=== PATIENT | male | born 1955 | race Caucasian/White ===

== ENCOUNTER → 2017-07-18 07:50 | Outpatient (CLI) | payer MEDICARE, MEDICAID, SELFPAY ==
[2017-07-18 08:49] LABS: Platelet Count 204 K/mm3 (150-450)
[2017-07-18 09:14] LABS: AST(SGOT) 17 U/L (15-37); Alanine Aminotransfer ALT/SGPT 19 U/L (16-61)
[2017-07-18 09:15] LABS: Valproic Acid (Depakene) Level 68 ug/mL (50-100)
== END ==
PROVIDERS: Visit Provider Psychiatry & Neurology Psychiatry
DX: Z79.899 Other long term (current) drug therapy (principal)
CPT/HCPCS: 36415; 80164; 84450; 84460; 85049

== ENCOUNTER → 2018-01-26 08:29 | Outpatient (CLI) | payer MEDICARE, MEDICAID, SELFPAY ==
[2018-01-26 09:18] LABS: Platelet Count 201 K/mm3 (150-450)
[2018-01-26 09:30] LABS: AST(SGOT) 19 U/L (15-37); Alanine Aminotransfer ALT/SGPT 29 U/L (16-61)
[2018-01-26 09:33] LABS: Valproic Acid (Depakene) Level 42 ug/mL (50-100)
== END ==
PROVIDERS: Visit Provider Psychiatry & Neurology Psychiatry
DX: Z79.899 Other long term (current) drug therapy (principal); F19.10 Other psychoactive substance abuse, uncomplicated; R53.83 Other fatigue
CPT/HCPCS: 36415; 80164; 84450; 84460; 85049

== ENCOUNTER → 2018-06-16 08:48 | Outpatient (CLI) | payer MEDICARE, SELFPAY ==
[2018-06-16 09:16] LABS: Platelet Count 196 K/mm3 (150-450)
[2018-06-16 09:43] LABS: AST(SGOT) 19 U/L (15-37); Alanine Aminotransfer ALT/SGPT 21 U/L (16-61)
[2018-06-16 10:02] LABS: Valproic Acid (Depakene) Level 61 ug/mL (50-100)
== END ==
PROVIDERS: Referring Provider Psychiatry & Neurology Psychiatry; Visit Provider Psychiatry & Neurology Psychiatry
DX: Z79.899 Other long term (current) drug therapy (principal)
CPT/HCPCS: 36415; 80164; 82140; 84450; 84460; 85049

== ENCOUNTER → 2019-01-22 09:57 | Outpatient (CLI) | payer MEDICARE, SELFPAY ==
[2019-01-22 10:11] LABS: Platelet Count 192 K/mm3 (150-450)
[2019-01-22 10:38] LABS: Ammonia < 10.0 umol/L (11-32)
[2019-01-22 10:39] LABS: AST(SGOT) 18 U/L (15-37); Alanine Aminotransfer ALT/SGPT 21 U/L (16-61)
[2019-01-22 10:42] LABS: Valproic Acid (Depakene) Level 85 ug/mL (50-100)
== END ==
PROVIDERS: Referring Provider Psychiatry & Neurology Psychiatry; Visit Provider Psychiatry & Neurology Psychiatry
DX: Z79.899 Other long term (current) drug therapy (principal)
CPT/HCPCS: 36415; 80164; 82140; 84450; 84460; 85049

== ENCOUNTER → 2019-05-31 09:02 | Outpatient (CLI) | payer MEDICARE, SELFPAY ==
[2019-05-31 09:22] LABS: Platelet Count 248 K/mm3 (150-450)
[2019-05-31 09:39] LABS: AST(SGOT) 15 U/L (15-37); Alanine Aminotransfer ALT/SGPT 21 U/L (16-61)
[2019-05-31 09:41] LABS: Ammonia < 10.0 umol/L (11-32)
[2019-05-31 10:03] LABS: Valproic Acid (Depakene) Level 55 ug/mL (50-100)
== END ==
PROVIDERS: Referring Provider Psychiatry & Neurology Psychiatry; Visit Provider Psychiatry & Neurology Psychiatry
DX: Z79.899 Other long term (current) drug therapy (principal)
CPT/HCPCS: 36415; 80164; 82140; 84450; 84460; 85049

== ENCOUNTER → 2020-02-05 09:36 | Outpatient (CLI) | payer MEDICARE, MEDICAID, SELFPAY ==
[2020-02-05 09:58] LABS: Hematocrit 51.6 % (40-54); Hemoglobin 16.6 g/dL (13.0-16.5); Mean Corp Hgb Conc 32.2 g/dL (32-36); Mean Corpuscular Hgb 30.5 pg (27.0-32.0); Mean Corpuscular Volume 94.7 fL (80-94); Mean Platelet Vol. 10.2 fl (6.2-12.0); Platelet Count 236 K/mm3 (150-450); RBC Distribution Width CV 14.6 % (11.6-14.6); RBC Distribution Width SD 50.2 fl (35.1-43.9); Red Blood Count 5.45 M/mm3 (4.6-6.2); White Blood Count 10.3 K/mm3 (4.4-11.0)
[2020-02-05 10:21] LABS: ALB/GLOB Ratio 0.6 RATIO (0.9-2.4); AST(SGOT) 17 U/L (15-37); Alanine Aminotransfer ALT/SGPT 20 U/L (16-61); Albumin, Serum 3.4 g/dL (3.2-5.0); Alkaline Phosphatase 74 U/L (45-117); Anion Gap 5 (5-15); BUN 22 mg/dL (7-18); BUN/Creat Ratio 23.5 RATIO (10-20); Calcium,Total 9.8 mg/dL (8.5-10.1); Chloride 99 mmol/L (98-107); Creatinine, Serum 0.94 mg/dL (0.70-1.30); EST Glomerular Filtration Rate 86 mL/min (>60); Est Glom Filt Rate - Afr Amer 105 mL/min (>60); Globulin 5.4 g/dL (2.2-4.2); Glucose 95 mg/dL (74-106); Potassium 4.9 mmol/L (3.5-5.1); Protein, Total 8.8 g/dL (6.4-8.2); Sodium Level 135 mmol/L (136-145); Thyroid Stim Hormone (TSH) 4.41 uIU/mL (0.358-3.74)
[2020-02-05 10:29] LABS: Valproic Acid (Depakene) Level 54 ug/mL (50-100)
== END ==
PROVIDERS: Referring Provider Psychiatry & Neurology Psychiatry; Visit Provider Psychiatry & Neurology Psychiatry
DX: R53.83 Other fatigue (principal); Z79.899 Other long term (current) drug therapy
CPT/HCPCS: 36415; 80053; 80164; 82140; 84443; 85027

== ENCOUNTER → 2020-08-19 08:54 | Outpatient (CLI) | payer MEDICARE, MEDICAID, SELFPAY ==
[2020-08-19 09:43] LABS: Platelet Count 324 K/mm3 (150-450)
[2020-08-19 09:58] LABS: AST(SGOT) 18 U/L (15-37); Alanine Aminotransfer ALT/SGPT 19 U/L (16-61); Valproic Acid (Depakene) Level 70 ug/mL (50-100)
[2020-08-19 10:04] LABS: Ammonia < 10.0 umol/L (11-32)
== END ==
PROVIDERS: Referring Provider Psychiatry & Neurology Psychiatry; Visit Provider Psychiatry & Neurology Psychiatry
DX: Z79.899 Other long term (current) drug therapy (principal)
CPT/HCPCS: 36415; 80164; 82140; 84450; 84460; 85049

== ENCOUNTER 2021-01-29 13:59 | Inpatient (IN) | payer MEDICARE, MEDICAID, SELFPAY ==
[2021-01-29] VITALS (28 sets, daily range): BP systolic 52–189; BP diastolic 32–169; PULSE 150–170; RESP 12–46; TEMP 35.1–36.1; O2SAT 85–100; BMI 26.7; BMI 30.2; BMI 27.3
--- NOTE | 2021-01-29 14:12 | CT_ITS ---
STUDY: CT BRAIN WITHOUT CONTRAST REASON FOR EXAM: Male, 65 years old. AMS RADIATION DOSAGE (If Supplied By Facility): CTDIvol = ( 44.99 ) mGy, DLP = ( 812.98 ) mGycm TECHNIQUE: Transaxial CT imaging of the brain was performed without administration of intravenous contrast material. Individualized dose optimization techniques were used for this CT. COMPARISON: No relevant priors. FINDINGS: Normal soft tissue structures. Normal calvarium. There is severe cerebral atrophy with widening of the extra-axial spaces and ventricular dilatation. There are areas of decreased attenuation within the white matter tracts of the supratentorial brain, consistent with microvascular disease changes. Normal basal ganglia and thalami. Normal brainstem. Normal cerebellum. There is no intracranial hemorrhage. There are no findings of an acute ischemic infarction. Normal visualized paranasal sinuses. CT/Brain/Head without Contrast IMPRESSION: Chronic involutional changes of the brain. Electronically Signed: Petey Jimenez MD at 15:01 EDT Tel , Service support ,
--- NOTE | 2021-01-29 14:12 | EKG12_ITS ---
Test Reason : ALTRD LOC Blood Pressure : / mmHG Vent. Rate : 157 BPM Atrial Rate : 153 BPM P-R Int : 000 ms QRS Dur : 146 ms QT Int : 296 ms P-R-T Axes : 000 047 -04 degrees QTc Int : 478 ms Atrial fibrillation /Flutter Right bundle branch block Abnormal ECG Confirmed by RANDALL JOHN, TORRIE ([id number]), fan mail editor RAKEL RAMOS ([id number]) on 01/30/2021 1:10:08 PM Referred By: SHANNAN Confirmed By:TORRIE PEREIRA MD
--- NOTE | 2021-01-29 14:15 | EX.ED.CRITCA ---
HPI History of Present Illness Chief Complaint: Alt LOC Informant: family and EMS Narrative Narrative: Patient is a 65-year-old male with history of alcohol abuse and possible liver disease presenting from home via EMS. Son spoke to the patient yesterday. Patient lives home alone in an apartment. He states he seemed confused but agreed to go to the doctor today. Son went to check on his dad today and bring him to be evaluated and found patient unresponsive. EMS was called. Son states patient not been eating or drinking lately because he could not. Patient not has Covid vaccine. No other information provided. EMS states his blood sugar was 147. He was 80% on room air when they arrived. [facility] Medical History Alcohol abuse Traumatic brain injury Home Medications Unobtainable 01/29/21 [History Last Taken Unknown] Allergy/AdvReac Type Severity Reaction Status Date / Time Unable to Assess Allergy Verified 01/29/21 14:16 Social History Smoking Status: Current every day smoker tobacco type: cigarettes ROS ROS ED Review of Systems ROS Unobtainable: due to encephalopathy EXAM Physical Exam Const Vital Signs: 01/29/21 14:01 01/29/21 14:17 01/29/21 14:30 Temperature 96.0 F L 96.4 F L Temperature Source Oral Temporal Pulse Rate 156 H 155 H Respiratory Rate 46 H 43 H Respiratory Pattern Blood Pressure 106/69 105/79 Blood Pressure Mean 81 87 Pulse Ox 96 93 Oxygen Delivery Method Nasal Cannula Nasal Cannula Venturi Mask Oxygen Flow Rate (L/min) 4 4 4 Fraction of Inspired Oxygen (FIO2) 28 01/29/21 14:50 01/29/21 15:16 01/29/21 15:29 Temperature 96.9 F L Temperature Source Core Pulse Rate 157 H 153 H Respiratory Rate 37 H 31 H Respiratory Pattern Blood Pressure 146/129 H 189/169 H Blood Pressure Mean 134 175 Pulse Ox 99 85 94 Oxygen Delivery Method Venturi Mask Venturi Mask Venturi Mask Oxygen Flow Rate (L/min) 4 50 12 Fraction of Inspired Oxygen (FIO2) 28 50 50 01/29/21 15:42 01/29/21 16:05 01/29/21 16:30 Temperature Temperature Source Pulse Rate 151 H 154 H Respiratory Rate 20 H 20 H Respiratory Pattern Irregular Blood Pressure 80/66 L Blood Pressure Mean 70 Pulse Ox 95 98 100 Oxygen Delivery Method Venturi Mask Mechanical Ventilator Oxygen Flow Rate (L/min) 8 Fraction of Inspired Oxygen (FIO2) 40 100 01/29/21 16:35 01/29/21 16:40 01/29/21 16:45 Temperature Temperature Source Pulse Rate 155 H 154 H 154 H Respiratory Rate 20 H 20 H 20 H Respiratory Pattern Blood Pressure 88/62 L 87/59 L 93/65 Blood Pressure Mean 70 68 74 Pulse Ox 100 100 100 Oxygen Delivery Method Mechanical Ventilator Mechanical Ventilator Mechanical Ventilator Oxygen Flow Rate (L/min) Fraction of Inspired Oxygen (FIO2) 01/29/21 16:52 Temperature 96.1 F L Temperature Source Core Pulse Rate 156 H Respiratory Rate 21 H Respiratory Pattern Blood Pressure 86/61 L Blood Pressure Mean 69 Pulse Ox 100 Oxygen Delivery Method Mechanical Ventilator Oxygen Flow Rate (L/min) Fraction of Inspired Oxygen (FIO2) Positive unkempt General Appearance ED: unkempt HEENT normocephalic and atraumatic Eyes Eyes Narrative: Pupils 4 mm bilaterally, sluggishly reactive Neck no lymphadenopathy, supple and no JVD Resp Resp Narrative: Tachypneic, rhonchorous breath sounds throughout. Diminished breath sounds on the right. Cardio regular rhythm Cardio Narrative: 2+ bilateral pitting edema up to the mid tibia Rate: tachycardic GI non-distended Palpation: soft and hepatomegaly Neuro Neuro Narrative: Patient obtunded. Spontaneously will reposition himself and moves all extremities but does not follow any commands. Psych Appearance: unkempt Skin Skin Narrative: Spider angiomas on the abdomen Lesions: no lesions MDM MDM MDM Narrative Medical decision making narrative: Patient evaluated for hypoxia and altered mental status. Patient is tachypneic and obtunded on exam. ABG shows a metabolic acidosis. Patient was placed on Ventimask but does not have any improvement with fluid resuscitation for his tachycardia or mentation and decision is made to intubate. See procedure note for intubation. Patient is given 30 cc/kg fluid bolus as he does have lactic acidosis and chest x-ray is concerning for right-sided pneumonia with associated pleural effusion. I did do a head CT which did not show any acute intracranial process to explain his altered mental status. I suspect is all metabolic. Patient does have a history of alcohol abuse and questionable liver failure. He is given thiamine and folic acid however he has a normal anion gap and I do not think he is an alcoholic ketoacidosis. Patient will be admitted to the ICU for further management. He is found to have LIDIA and is hyperkalemic. He is given sodium bicarb, calcium gluconate, dextrose and insulin to temporize his potassium. I did discuss potentially doing a thoracentesis under ultrasound guidance with radiology however he would like to wait till tomorrow when the patient is more stabilized and labs are back. Case is discussed with ICU on-call, Dr. Calle and admitting physician Dr. Rivera. Patient does have worsening hypotension and thoracentesis performed as concerned that he has obstruction of his venous return causing his hypotension due to the size of his pleural effusion. Dr. Hubbard performed thoracentesis in the ER and 3 L were obtained of straw-colored fluid. Studies were sent of this fluid. Central is also placed by Dr. Hubbard and Levophed is ordered for his hypotension. Patient son is at the bedside throughout his ER stay. Patient son confirms the patient is full code and would like everything done for him. Patient started on broad-spectrum antibiotics to cover for pneumonia as well as aspiration pneumonia. He is admitted to the ICU in critical condition. Lab Data Attestation: I reviewed the patient's lab results. Labs: Laboratory Results - last 24 hr 01/29/21 01/29/21 01/29/21 14:05 14:05 14:05 WBC Cancelled Corrected WBC Cancelled RBC Cancelled Hgb Cancelled Hct Cancelled MCV Cancelled MCH Cancelled MCHC Cancelled RDW Std Deviation Cancelled RDW Coeff of Tony Cancelled Plt Count Cancelled MPV Cancelled Immature Gran % (Auto) Cancelled Neut % (Auto) Cancelled Lymph % (Auto) Cancelled [place] % (Auto) Cancelled Eos % (Auto) Cancelled Baso % (Auto) Cancelled Absolute Neuts (auto) Cancelled Absolute Lymphs (auto) Cancelled Total Counted Cancelled Neutrophils % (Manual) Cancelled Band Neutrophils % Cancelled Lymphocytes % (Manual) Cancelled Monocytes % (Manual) Cancelled Eosinophils % (Manual) Cancelled Basophils % (Manual) Cancelled Metamyelocytes % Cancelled Myelocytes % Cancelled Promyelocytes % Cancelled Blast Cells % Cancelled Plasma Cell % (Manual) Cancelled Other Cells % Cancelled Nucleated RBC % Cancelled Nucleated RBCs/100 WBC Cancelled Differential Comment Cancelled Diff Path Review Cancelled Hypersegmented Neuts Cancelled Atypical Lymphocytes Cancelled Reactive Lymphocytes Cancelled Smudge Cells Cancelled Toxic Granulation Cancelled Toxic Vacuolation Cancelled Dohle Bodies Cancelled [place] Rods Cancelled Platelet Estimate Cancelled Plt Morphology Comment Cancelled RBC Morphology Cancelled Polychromasia Cancelled Hypochromasia Cancelled Poikilocytosis Cancelled Basophilic Stippling Cancelled Anisocytosis Cancelled Microcytosis Cancelled Macrocytosis Cancelled Spherocytes Cancelled Sickle Cells Cancelled Target Cells Cancelled Tear Drop Cells Cancelled Ovalocytes Cancelled Stomatocytes Cancelled [place] Bodies Cancelled [place] Cells Cancelled Bite Cells Cancelled Crenated Cell Cancelled Acanthocytes (Spur) Cancelled Rouleaux Cancelled Schistocytes Cancelled PT Cancelled INR Cancelled APTT Cancelled Sodium Potassium Chloride Carbon Dioxide Anion Gap BUN Creatinine Estim Creat Clear Calc Est GFR (MDRD) Af Amer Est GFR (MDRD) Non-Af BUN/Creatinine Ratio Glucose Lactic Acid Calcium Total Bilirubin 1.00 Direct Bilirubin 0.46 H AST 29 ALT 23 Alkaline Phosphatase 133 H Ammonia Total Creatine Kinase Troponin I High Sens 168 H* Total Protein 8.2 Albumin 1.6 L Globulin 6.6 H TSH Ethyl Alcohol Acetone Level POC Glucose 01/29/21 01/29/21 01/29/21 14:05 14:05 14:05 WBC Corrected WBC RBC Hgb Hct MCV MCH MCHC RDW Std Deviation RDW Coeff of Tony Plt Count MPV Immature Gran % (Auto) Neut % (Auto) Lymph % (Auto) [place] % (Auto) Eos % (Auto) Baso % (Auto) Absolute Neuts (auto) Absolute Lymphs (auto) Total Counted Neutrophils % (Manual) Band Neutrophils % Lymphocytes % (Manual) Monocytes % (Manual) Eosinophils % (Manual) Basophils % (Manual) Metamyelocytes % Myelocytes % Promyelocytes % Blast Cells % Plasma Cell % (Manual) Other Cells % Nucleated RBC % Nucleated RBCs/100 WBC Differential Comment Diff Path Review Hypersegmented Neuts Atypical Lymphocytes Reactive Lymphocytes Smudge Cells Toxic Granulation Toxic Vacuolation Dohle Bodies [place] Rods Platelet Estimate Plt Morphology Comment RBC Morphology Polychromasia Hypochromasia Poikilocytosis Basophilic Stippling Anisocytosis Microcytosis Macrocytosis Spherocytes Sickle Cells Target Cells Tear Drop Cells Ovalocytes Stomatocytes [place] Bodies [place] Cells Bite Cells Crenated Cell Acanthocytes (Spur) Rouleaux Schistocytes PT INR APTT Sodium 131 L Potassium 6.2 H* Chloride 100 Carbon Dioxide 17.0 L Anion Gap 14 BUN 68 H Creatinine 1.94 H Estim Creat Clear Calc 37.22 Est GFR (MDRD) Af Amer 45 L Est GFR (MDRD) Non-Af 37 L BUN/Creatinine Ratio 35.1 H Glucose 145 H Lactic Acid 7.9 H* Calcium 9.2 Total Bilirubin Direct Bilirubin AST ALT Alkaline Phosphatase Ammonia Total Creatine Kinase 45 Troponin I High Sens Total Protein Albumin Globulin TSH 6.06 H Ethyl Alcohol Acetone Level Cancelled POC Glucose 01/29/21 01/29/21 01/29/21 14:05 14:11 15:02 WBC Corrected WBC RBC Hgb Hct MCV MCH MCHC RDW Std Deviation RDW Coeff of Tony Plt Count MPV Immature Gran % (Auto) Neut % (Auto) Lymph % (Auto) [place] % (Auto) Eos % (Auto) Baso % (Auto) Absolute Neuts (auto) Absolute Lymphs (auto) Total Counted Neutrophils % (Manual) Band Neutrophils % Lymphocytes % (Manual) Monocytes % (Manual) Eosinophils % (Manual) Basophils % (Manual) Metamyelocytes % Myelocytes % Promyelocytes % Blast Cells % Plasma Cell % (Manual) Other Cells % Nucleated RBC % Nucleated RBCs/100 WBC Differential Comment Diff Path Review Hypersegmented Neuts Atypical Lymphocytes Reactive Lymphocytes Smudge Cells Toxic Granulation Toxic Vacuolation Dohle Bodies [place] Rods Platelet Estimate Plt Morphology Comment RBC Morphology Polychromasia Hypochromasia Poikilocytosis Basophilic Stippling Anisocytosis Microcytosis Macrocytosis Spherocytes Sickle Cells Target Cells Tear Drop Cells Ovalocytes Stomatocytes [place] Bodies Logan Cells Bite Cells Crenated Cell Acanthocytes (Spur) Rouleaux Schistocytes PT INR APTT Sodium Potassium Chloride Carbon Dioxide Anion Gap BUN Creatinine Estim Creat Clear Calc Est GFR (MDRD) Af Amer Est GFR (MDRD) Non-Af BUN/Creatinine Ratio Glucose Lactic Acid Calcium Total Bilirubin Direct Bilirubin AST ALT Alkaline Phosphatase Ammonia 582.0 H Total Creatine Kinase Troponin I High Sens Total Protein Albumin Globulin TSH Ethyl Alcohol Cancelled Acetone Level POC Glucose 156 H 01/29/21 01/29/2121 15:02 15:02 15:02 WBC 44.6 H* Corrected WBC RBC 4.28 L Hgb 11.9 L Hct 39.1 L MCV 91.4 MCH 27.8 MCHC 30.4 L RDW Std Deviation 71.7 H RDW Coeff of Tony 22.7 H Plt Count 123 L MPV 12.3 H Immature Gran % (Auto) 2.800 H Neut % (Auto) 89.0 H Lymph % (Auto) 2.2 L [place] % (Auto) 5.7 Eos % (Auto) 0.2 Baso % (Auto) 0.1 Absolute Neuts (auto) 39.7 H Absolute Lymphs (auto) 1.00 Total Counted Neutrophils % (Manual) Band Neutrophils % Lymphocytes % (Manual) Monocytes % (Manual) Eosinophils % (Manual) Basophils % (Manual) Metamyelocytes % Myelocytes % Promyelocytes % Blast Cells % Plasma Cell % (Manual) Other Cells % Nucleated RBC % 0.5 Nucleated RBCs/100 WBC Differential Comment SEE COMMENTS Diff Path Review May foll Hypersegmented Neuts Atypical Lymphocytes Reactive Lymphocytes Smudge Cells Toxic Granulation RARE Toxic Vacuolation Dohle Bodies Bryant Rods Platelet Estimate SLT DEC Plt Morphology Comment RBC Morphology N CHROM Polychromasia Hypochromasia Poikilocytosis Basophilic Stippling Anisocytosis RARE Microcytosis Macrocytosis RARE Spherocytes Sickle Cells Target Cells Tear Drop Cells Ovalocytes Stomatocytes [place] Bodies [place] Cells Bite Cells Crenated Cell Acanthocytes (Spur) Rouleaux Schistocytes PT 22.2 H INR 2.0 APTT 34.8 Sodium Potassium Chloride Carbon Dioxide Anion Gap BUN Creatinine Estim Creat Clear Calc Est GFR (MDRD) Af Amer Est GFR (MDRD) Non-Af BUN/Creatinine Ratio Glucose Lactic Acid Calcium Total Bilirubin Direct Bilirubin AST ALT Alkaline Phosphatase Ammonia Total Creatine Kinase Troponin I High Sens Total Protein Albumin Globulin TSH Ethyl Alcohol 7.0 Acetone Level NEGATIVE POC Glucose 01/29/21 16:04 WBC Corrected WBC RBC Hgb Hct MCV MCH MCHC RDW Std Deviation RDW Coeff of Tony Plt Count MPV Immature Gran % (Auto) Neut % (Auto) Lymph % (Auto) [place] % (Auto) Eos % (Auto) Baso % (Auto) Absolute Neuts (auto) Absolute Lymphs (auto) Total Counted Neutrophils % (Manual) Band Neutrophils % Lymphocytes % (Manual) Monocytes % (Manual) Eosinophils % (Manual) Basophils % (Manual) Metamyelocytes % Myelocytes % Promyelocytes % Blast Cells % Plasma Cell % (Manual) Other Cells % Nucleated RBC % Nucleated RBCs/100 WBC Differential Comment Diff Path Review Hypersegmented Neuts Atypical Lymphocytes Reactive Lymphocytes Smudge Cells Toxic Granulation Toxic Vacuolation Dohle Bodies Bryant Rods Platelet Estimate Plt Morphology Comment RBC Morphology Polychromasia Hypochromasia Poikilocytosis Basophilic Stippling Anisocytosis Microcytosis Macrocytosis Spherocytes Sickle Cells Target Cells Tear Drop Cells Ovalocytes Stomatocytes [place] Bodies Logan Cells Bite Cells Crenated Cell Acanthocytes (Spur) Rouleaux Schistocytes PT INR APTT Sodium Potassium Chloride Carbon Dioxide Anion Gap BUN Creatinine Estim Creat Clear Calc Est GFR (MDRD) Af Amer Est GFR (MDRD) Non-Af BUN/Creatinine Ratio Glucose Lactic Acid Calcium Total Bilirubin Direct Bilirubin AST ALT Alkaline Phosphatase Ammonia Total Creatine Kinase Troponin I High Sens Total Protein Albumin Globulin TSH Ethyl Alcohol Acetone Level POC Glucose 238 H ABG Data ABG results: ABG 01/29/21 14:17 Specimen Type ART Sample Site R Radial pH 7.19 L* Bicarbonate Actual 13.7 L Total CO2 15 Base Excess -15 L O2 Saturation 94 L ABG pCO2 35.9 ABG pO2 85 Gabriele Test Positive Liter Flow 4.0 Crit Call To/Read Back Yes Radiography Chest X-Ray - ED: 1 View, Read by ED Physician, Read by Radiologist, Right Infiltrate and Right Effusion Diagnostic Testing: Radiology Impression Brain CT 01/29/21 14:12 IMPRESSION: Chronic involutional changes of the brain. Electronically Signed: Petey Jimenez MD at 15:01 EDT Tel , Service support , Chest X-Ray 01/29/21 14:47 IMPRESSION: Complete opacification the right hemithorax worrisome for a large right pleural effusion. Correlation with CT of the chest with contrast would be useful. Electronically Signed: Petey Jimenez MD at 14:59 EDT Tel , Service support , Chest/Abdomen/Pelvis CT 01/29/21 15:24 IMPRESSION: 1. Large right pleural effusion with near total collapse of the right lung. 2. Suspect large right hilar mass with probable mediastinal invasion worrisome for bronchogenic carcinoma and correlation with CT the chest with contrast after thoracentesis is recommended. 3. Some left lung subsegmental atelectasis or pneumonitis. 4. 11 cm sebaceous cyst within the superior right flank soft tissues. Electronically Signed: Petey Jimenez MD at 16:24 EDT Tel , Service support , Chest X-Ray 01/29/21 16:25 IMPRESSION: 1. Interval placement of endotracheal tube with the tip above the simona. 2. Interval placement of nasogastric tube with tip below the diaphragm. 3. No change in a large right pleural effusion with near total collapse of the right lung. Electronically Signed: Petey Jimenez MD at 16:51 EDT Tel , Service support , Rhythm Strip Rhythm Strip: Sinus Tach Rate: 157 Ectopy: None EKG Initial EKG: Attestation: I personally reviewed and interpreted this EKG as follows: Interpretation: Sinus Tachycardia Comments: Sinus tachycardia Slight left axis Right bundle branch block Slight ST depressions likely consistent with strain pattern Procedures Intubations Intubation Method: nasotracheal (No sedation required. 4-0 Mac blade using glide scope used to visualize a grade 1 view of the cords. 7.5 ET tube passed on first attempt easily. No immediate complications.) Intubation Verification: Positive color change and Bilateral breath sounds confirmed Intubation Complications: no complications Critical Care Time Critical Care Time: Yes Critical care time (excluding procedures): 30-74 minutes (65), Discussing w/Patient &/or Family/Income Tax Consultant, Discussing w/Consultants, Arranging Admission or Transfer and Performing Direct Patient Care at Bedside Discharge Plan Dx/Rx/DC Orders Clinical Impression: Severe sepsis with septic shock, Acute encephalopathy, Acute respiratory failure, Metabolic acidosis, Acute kidney injury, Hyperkalemia, Pleural effusion on right, Alcohol abuse, Decompensated hepatic cirrhosis Disposition Disposition: Acute Care [facility] Discharge Date/Time: 01/29/21 18:21
[2021-01-29 14:20] LABS: Bedside Glucose 156 mg/dL (70-110)
[2021-01-29 14:20] LABS: Allen Test Positive; Base Excess -15 mmol/L (-2 to +2); Bicarbonate 13.7 mmol/L (22-26); Blood Gas Specimen Type ART; PO2 85 mmHG (75-100); SITE R Radial; SO2 94 % (95-99); Total Carbon Dioxide 15 mmol/L; pCO2 35.9 mmHg (35-45); pH 7.19 (7.35-7.45)
--- NOTE | 2021-01-29 14:47 | RAD_ITS ---
STUDY: X-RAY CHEST REASON FOR EXAM: Male, 65 years old. hypoxia TECHNIQUE: Single AP portable view of the chest. COMPARISON: None. FINDINGS: Complete opacification of the right hemithorax consistent with a large right-sided pleural effusion or right lung collapse. Lack of mediastinal shift suggests pleural effusion. Correlation with CT would be useful. Normal size heart. Normal mediastinum and bridgette. Normal visualized pulmonary arteries. Normal visualized aortic arch and descending thoracic aorta. Normal visualized thoracic spine. Normal visualized ribs, clavicles, and shoulders. There is no demonstrated abnormality of the visualized soft tissue structures of the upper abdomen. RAD/Chest 1 View (Portable) IMPRESSION: Complete opacification the right hemithorax worrisome for a large right pleural effusion. Correlation with CT of the chest with contrast would be useful. Electronically Signed: Petey Jimenez MD at 14:59 EDT Tel , Service support ,
[2021-01-29 14:49] LABS: AST(SGOT) 29 U/L (15-37); Alanine Aminotransfer ALT/SGPT 23 U/L (16-61); Albumin, Serum 1.6 g/dL (3.2-5.0); Alkaline Phosphatase 133 U/L (45-117); Bilirubin, Direct 0.46 mg/dL (0.00-0.30); Globulin 6.6 g/dL (2.2-4.2); Protein, Total 8.2 g/dL (6.4-8.2); Troponin-I HS 168 pg/mL (3.0-78.0)
[2021-01-29 14:54] LABS: Anion Gap 14 (5-15); BUN 68 mg/dL (7-18); BUN/Creat Ratio 35.1 RATIO (10-20); CPK Total, Creatine Kinase 45 U/L (39-308); Calcium,Total 9.2 mg/dL (8.5-10.1); Chloride 100 mmol/L (98-107); Creatinine, Serum 1.94 mg/dL (0.70-1.30); EST Glomerular Filtration Rate 37 mL/min (>60); Est Glom Filt Rate - Afr Amer 45 mL/min (>60); Estimated Creatinine Clearance 37.22 ml/min; Glucose 145 mg/dL (74-106); Potassium 6.2 mmol/L (3.5-5.1); Sodium Level 131 mmol/L (136-145); Thyroid Stim Hormone (TSH) 6.06 uIU/mL (0.358-3.74)
[2021-01-29 14:55] LABS: Lactic Acid 7.9 mmol/L (0.4-1.9)
[2021-01-29] MEDS: 0.9% Normal Saline 1,000 ML 999 ML IV ×4 (14:59→19:07)
[2021-01-29 15:24] LABS: Absolute Neutrophil Count 39.7 X10^3/uL (2.0-7.7); Basophil# 0.03 X10^3/uL; Basophil% 0.1 % (0-1); Eosinophils% 0.2 % (0-5); Hematocrit 39.1 % (40-54); Hemoglobin 11.9 g/dL (13.0-16.5); Lymphocyte % 2.2 % (19-41); Mean Corp Hgb Conc 30.4 g/dL (32-36); Mean Corpuscular Hgb 27.8 pg (27.0-32.0); Mean Corpuscular Volume 91.4 fL (80-94); Mean Platelet Vol. 12.3 fl (6.2-12.0); Monocyte# 2.55 X10^3/uL; Monocyte% 5.7 % (0-10); NRBC Flagged by Analyzer 0.5 % (0-5); Neutrophil # 39.72 X10^3/uL (2.7-7.7); POSITIVE COUNT YES; POSITIVE DIFFERENTIAL YES; POSITIVE MORPHOLOGY YES; Platelet Count 123 K/mm3 (150-450); RBC Distribution Width CV 22.7 % (11.6-14.6); RBC Distribution Width SD 71.7 fl (35.1-43.9); Red Blood Count 4.28 M/mm3 (4.6-6.2)
--- NOTE | 2021-01-29 15:24 | CT_ITS ---
STUDY: CT CHEST, ABDOMEN T PELVIS WITHOUT CONTRAST REASON FOR EXAM: Male, 65 years old. septic shock RADIATION DOSAGE (If Supplied By Facility): CTDIvol = ( 19.08 ) mGy, DLP = ( 1773.12 ) mGycm TECHNIQUE: Transaxial imaging was performed without the administration of intravenous contrast material. Individualized dose optimization techniques were used for this CT. COMPARISON: No relevant priors. FINDINGS: CHEST Mild emphysematous changes. Peripheral groundglass densities in the left lung consistent with subsegmental atelectasis or pneumonitis. Large right pleural effusion extending over the apex of the right lung with near total collapse of the right lung. Normal heart and pericardium. Normal mediastinum. Suspect large right hilar mass with mediastinal invasion difficult to visualize due to the large pleural effusion and lack of intravenous contrast. A repeat CT with contrast after thoracentesis would be useful. Normal unenhanced pulmonary arteries. Normal aorta arch and descending thoracic aorta. Normal osseous structures. 2 cm round mass of fluid attenuation immediately subjacent to the skin in the anterior chest wall consistent with a sebaceous cyst. 9 cm mass of fluid attenuation immediately subjacent to the skin in the superior aspect of the right flank worrisome for sebaceous cyst. ABDOMEN Large right pleural effusion. The visualized portions of the heart are within normal limits. Normal liver. Normal gallbladder and extrahepatic biliary system. Normal spleen. Normal pancreas. Normal bilateral adrenal glands. Normal right kidney. Normal left kidney. Normal visualized stomach. Normal small intestine. Normal colon. The appendix is visualized and appears normal. Normal abdominal aorta. Normal inferior vena cava. Normal retroperitoneum. 11 cm oval mass of water attenuation within the superficial subcutaneous fat just subjacent to the skin of the right flank consistent with a large sebaceous cyst. Normal osseous structures. PELVIS Negro catheter within the collapsed bladder. Normal visualized small intestine. Normal visualized colon. There is no pelvic fluid. There is no pelvic lymphadenopathy or mass lesion. Normal visualized pelvic arteries. There is a left inguinal hernia containing fat. Normal osseous structures. CT/CT Chest, Abd, Pelvis WO Cont IMPRESSION: 1. Large right pleural effusion with near total collapse of the right lung. 2. Suspect large right hilar mass with probable mediastinal invasion worrisome for bronchogenic carcinoma and correlation with CT the chest with contrast after thoracentesis is recommended. 3. Some left lung subsegmental atelectasis or pneumonitis. 4. 11 cm sebaceous cyst within the superior right flank soft tissues. Electronically Signed: Petey Jimenez MD at 16:24 EDT Tel , Service support ,
[2021-01-29 15:26] LABS: Differential Indicated SCAN CRITERIA MET; White Blood Count 44.6 K/mm3 (4.4-11.0)
[2021-01-29 15:33] LABS: Prothrombin Time (Protime)PT. 22.2 SECONDS (11.7-14.9)
[2021-01-29 15:34] LABS: Partial Thromboplast Time 34.8 Seconds (24.1-36.2)
[2021-01-29] MEDS: LORazepam 2 MG/ML Syringe IV (15:49)
[2021-01-29 15:53] LABS: Anisocytosis RARE; Differential Comment SEE COMMENTS; Macrocytosis RARE; Platelet Estimate SLT DEC (ADEQ); Red Cell Morphology N CHROM NORMAL (NORM C&C); Toxic Granulation RARE
[2021-01-29] MEDS: Insulin Lispro 10 UNIT in Syringe 0 ML 6 UNIT IV (15:53)
[2021-01-29] MEDS: Dextrose 50%-Water 25 GM/50 ML DISP.SYRIN IV (15:59)
[2021-01-29 16:11] LABS: Bedside Glucose 238 mg/dL (70-110)
[2021-01-29] MEDS: Propofol 10MG/Ml 1,000 MG/100 ML Bottle 5.4 MG CONT INF (16:22)
--- NOTE | 2021-01-29 16:25 | RAD_ITS ---
STUDY: X-RAY CHEST REASON FOR EXAM: Male, 65 years old. Intubation TECHNIQUE: Single AP portable view of the chest. COMPARISON: 01/29/2021 at 1456 FINDINGS: Interval placement of endotracheal tube with the tip approximately 6 cm above the simona. Interval placement of nasogastric tube with tip below the diaphragm. No change in the near total opacification right hemithorax consistent with a large right pleural effusion and right lung collapse. There is no demonstrated pleural abnormality. Normal size heart. Normal mediastinum and bridgette. Normal visualized pulmonary arteries. Normal visualized aortic arch and descending thoracic aorta. Normal visualized thoracic spine. Normal visualized ribs, clavicles, and shoulders. There is no demonstrated abnormality of the visualized soft tissue structures of the upper abdomen. RAD/Chest 1 View (Portable) IMPRESSION: 1. Interval placement of endotracheal tube with the tip above the simona. 2. Interval placement of nasogastric tube with tip below the diaphragm. 3. No change in a large right pleural effusion with near total collapse of the right lung. Electronically Signed: Petey Jimenez MD at 16:51 EDT Tel , Service support ,
--- NOTE | 2021-01-29 18:10 | RAD_ITS ---
STUDY: X-RAY CHEST REASON FOR EXAM: Male, 65 years old. Central line placement. Thoracentesis. TECHNIQUE: Single AP portable view of the chest. COMPARISON: 01/29/2021 (1624) FINDINGS: There is now a right jugular central venous catheter. Tip lies in the superior vena cava. Interval endotracheal tube and nasal gastric tube. There is a small bore straight catheter overlying the right mid chest. There is a decrease in the pleural effusion when compared to prior study. There is a pneumothorax of approximately 10% of the visualized lung volume. There is increased density within the visualized right lung apex. There is marked decrease in the pleural effusion when compared to prior study. The left lung is clear. There is decreased mediastinal shift when compared to the previous study. Normal mediastinum and left hilum. Normal left pulmonary arteries. Normal visualized aortic arch and descending thoracic aorta. No osseous changes. There is no demonstrated abnormality of the visualized soft tissue structures of the upper abdomen. RAD/CXR for Line Placement IMPRESSION: 1. Right jugular central venous catheter not previously seen. 2. The catheter within the right hemithorax. There is a decrease in the right pleural effusion. There is collapse of the visualized right lung apex with approximate 10% pneumothorax. 3. Resolution of the left mediastinal shift seen on the prior study. Electronically Signed: Jhonathan Diaz DO at 18:55 EDT Tel [phone], Service support ,
--- NOTE | 2021-01-29 18:15 | EX.ED.PROC ---
Procedure Report Date of Procedure: 01/29/21 Due to busy department I asked performed procedures below emergently due to patient's critical condition. Patient noted total pleural effusion on the right side currently on a ventilator tachycardic and getting hypotensive. Son was bedside discussed procedures to be performed emergently. He understands. Thoracentesis: Emergent condition. Normal sterile fashion. Betadine prep right chest wall. 11 blade used for skin incision, thoracentesis blunt needle advanced over the rib into the chest wall, there was air bubbles return, thoracentesis tube was advanced. This was secured, cloudy yellow fluid continued to drain from Pleur-evac, 3 L does so far. Fluids were collected in 3 tubes for analysis in the lab as needed. Tube was secured with 2-0 suture, Xeroform dressing and tube dressing was placed to secure. Central line placement: Emergent due to hypotension. Ultrasound evaluation noted dilated right IJ. Betadine prep, skin was anesthetized, ultrasound guided Seldinger straight needle with dark blood on first stick. Guidewire advanced, skin incision, dilation, triple-lumen catheter placed and secured. All 3 lines flushed. Biopatch and dressing was placed. Post ultrasound pleural noted no pneumothorax. Post chest x-ray films reviewed by myself noted good placement of central line, one third of lung upper was now visualized, thoracentesis tube was noted in the chest wall.
[2021-01-29 18:23] LABS: Reflex Lactate? Y
--- NOTE | 2021-01-29 18:37 | HP.PCM_ITS ---
HPI - General General Date of Admission: 01/29/21 HPI Narrative LUCINA AGUIRRE, is a 65 M with a history of alcohol abuse. Found unresponsive by his son. EMS called and patient brought to the hospital. No history of alcohol abuse. Patient unable to provide any history as he is encephalopathic and obtunded. Found to have marked leukocytosis and whiteout on the right lung noted on chest x-ray and CT. Due to respiratory failure and impairment in mentation and inability to protect airway patient was intubated. [facility] Medical History Alcohol abuse Traumatic brain injury Home Medications Unobtainable 01/29/21 [History Last Taken Unknown] Allergy/AdvReac Type Severity Reaction Status Date / Time Unable to Assess Allergy Verified 01/29/21 14:16 Social History Smoking Status: Current every day smoker tobacco type: cigarettes ROS ROS Narrative Unable to obtain from patient due to impaired mental status. Vital Signs Vital Signs Vital Signs: 01/29/21 14:01 01/29/21 14:17 01/29/21 14:30 Temperature 35.6 C L 35.8 C L Temperature Source Oral Temporal Pulse Rate 156 H 155 H Respiratory Rate 46 H 43 H Respiratory Pattern Blood Pressure 106/69 105/79 Blood Pressure Mean 81 87 Pulse Ox 96 93 Oxygen Delivery Method Nasal Cannula Nasal Cannula Venturi Mask Oxygen Flow Rate (L/min) 4 4 4 Fraction of Inspired Oxygen (FIO2) 28 01/29/21 14:50 01/29/21 15:16 01/29/21 15:29 Temperature 36.1 C L Temperature Source Core Pulse Rate 157 H 153 H Respiratory Rate 37 H 31 H Respiratory Pattern Blood Pressure 146/129 H 189/169 H Blood Pressure Mean 134 175 Pulse Ox 99 85 94 Oxygen Delivery Method Venturi Mask Venturi Mask Venturi Mask Oxygen Flow Rate (L/min) 4 50 12 Fraction of Inspired Oxygen (FIO2) 28 50 50 01/29/21 15:42 01/29/21 16:05 01/29/21 16:30 Temperature Temperature Source Pulse Rate 151 H 154 H Respiratory Rate 20 H 20 H Respiratory Pattern Irregular Blood Pressure 80/66 L Blood Pressure Mean 70 Pulse Ox 95 98 100 Oxygen Delivery Method Venturi Mask Mechanical Ventilator Oxygen Flow Rate (L/min) 8 Fraction of Inspired Oxygen (FIO2) 40 100 01/29/21 16:35 01/29/21 16:40 01/29/21 16:45 Temperature Temperature Source Pulse Rate 155 H 154 H 154 H Respiratory Rate 20 H 20 H 20 H Respiratory Pattern Blood Pressure 88/62 L 87/59 L 93/65 Blood Pressure Mean 70 68 74 Pulse Ox 100 100 100 Oxygen Delivery Method Mechanical Ventilator Mechanical Ventilator Mechanical Ventilator Oxygen Flow Rate (L/min) Fraction of Inspired Oxygen (FIO2) 01/29/21 16:52 01/29/21 17:47 Temperature 35.6 C L 35.3 C L Temperature Source Core Core Pulse Rate 156 H 155 H Respiratory Rate 21 H 26 H Respiratory Pattern Blood Pressure 86/61 L 80/64 L Blood Pressure Mean 69 69 Pulse Ox 100 Oxygen Delivery Method Mechanical Ventilator Mechanical Ventilator Oxygen Flow Rate (L/min) Fraction of Inspired Oxygen (FIO2) Weight Weight: 90 kg Body Mass Index (BMI) 30.2 Physical Exam Narrative General exam. Acutely ill looking, chronically ill looking, poorly kempt HEENT. Oral mucosa dry Neck. Neck is supple Heart. First and second heart sounds heard no murmurs. Patient is very tachycardic with heart rate in the 140s. Lungs. Markedly diminished breath sounds in the right hemithorax. Abdomen. Liver is markedly enlarged to 10 to 12 cm below the costal margin, firm to hard. Extremities. Bilateral pitting pedal edema 2+. Skin. There is mottling of the skin. Skin of the extremities is cool. [employer]. Patient is stuporous and obtunded. Results Lab / Micro Data Result Diagrams: 01/29/21 15:02 01/29/21 14:05 Labs: Laboratory Results - last 24 hr 01/29/21 14:05: Total Bilirubin 1.00, Direct Bilirubin 0.46 H, AST 29, ALT 23, Alkaline Phosphatase 133 H, Troponin I High Sens 168 H*, Total Protein 8.2, Albumin 1.6 L, Globulin 6.6 H 01/29/21 14:05: WBC Cancelled, Corrected WBC Cancelled, RBC Cancelled, Hgb Cancelled, Hct Cancelled, MCV Cancelled, MCH Cancelled, MCHC Cancelled, RDW Std Deviation Cancelled, RDW Coeff of Tony Cancelled, Plt Count Cancelled, MPV Cancelled, Immature Gran % (Auto) Cancelled, Neut % (Auto) Cancelled, Lymph % (Auto) Cancelled, [place] % (Auto) Cancelled, Eos % (Auto) Cancelled, Baso % (Auto) Cancelled, Absolute Neuts (auto) Cancelled, Absolute Lymphs (auto) Cancelled, Total Counted Cancelled, Neutrophils % (Manual) Cancelled, Band Neutrophils % Cancelled, Lymphocytes % (Manual) Cancelled, Monocytes % (Manual) Cancelled, Eosinophils % (Manual) Cancelled, Basophils % (Manual) Cancelled, Metamyelocytes % Cancelled, Myelocytes % Cancelled, Promyelocytes % Cancelled, Blast Cells % Cancelled, Plasma Cell % (Manual) Cancelled, Other Cells % Cancelled, Nucleated RBC % Cancelled, Nucleated RBCs/100 WBC Cancelled, Differential Comment Cancelled, Diff Path Review Cancelled, Hypersegmented Neuts Cancelled, Atypical Lymphocytes Cancelled, Reactive Lymphocytes Cancelled, Smudge Cells Cancelled, Toxic Granulation Cancelled, Toxic Vacuolation Cancelled, Dohle Bodies Cancelled, Bryant Rods Cancelled, Platelet Estimate Cancelled, Plt Morphology Comment Cancelled, RBC Morphology Cancelled, Polychromasia Cancelled, Hypochromasia Cancelled, Poikilocytosis Cancelled, Basophilic Stippling Cance lled, Anisocytosis Cancelled, Microcytosis Cancelled, Macrocytosis Cancelled, Spherocytes Cancelled, Sickle Cells Cancelled, Target Cells Cancelled, Tear Drop Cells Cancelled, Ovalocytes Cancelled, Stomatocytes Cancelled, [place] Bodies Cancelled, Logan Cells Cancelled, Bite Cells Cancelled, Crenated Cell Cancelled, Acanthocytes (Spur) Cancelled, Rouleaux Cancelled, Schistocytes Cancelled 01/29/21 14:05: PT Cancelled, INR Cancelled, APTT Cancelled 01/29/21 14:05: Sodium 131 L, Potassium 6.2 H*, Chloride 100, Carbon Dioxide 17.0 L, Anion Gap 14, BUN 68 H, Creatinine 1.94 H, Estim Creat Clear Calc 37.22, Est GFR (MDRD) Af Amer 45 L, Est GFR (MDRD) Non-Af 37 L, BUN/Creatinine Ratio 35.1 H, Glucose 145 H, Calcium 9.2, Total Creatine Kinase 45, TSH 6.06 H 01/29/21 14:05: Acetone Level Cancelled 01/29/21 14:05: Lactic Acid 7.9 H* 01/29/21 14:05: Ethyl Alcohol Cancelled 01/29/21 14:11: POC Glucose 156 H 01/29/21 15:02: Ammonia 582.0 H 01/29/21 15:02: PT 22.2 H, INR 2.0, APTT 34.8 01/29/21 15:02: WBC 44.6 H*, RBC 4.28 L, Hgb 11.9 L, Hct 39.1 L, MCV 91.4, MCH 27.8, MCHC 30.4 L, RDW Std Deviation 71.7 H, RDW Coeff of Tony 22.7 H, Plt Count 123 L, MPV 12.3 H, Immature Gran % (Auto) 2.800 H, Neut % (Auto) 89.0 H, Lymph % (Auto) 2.2 L, [place] % (Auto) 5.7, Eos % (Auto) 0.2, Baso % (Auto) 0.1, Absolute Neuts (auto) 39.7 H, Absolute Lymphs (auto) 1.00, Nucleated RBC % 0.5, Differential Comment SEE COMMENTS, Diff Path Review May foll, Toxic Granulation RARE, Platelet Estimate SLT DEC, RBC Morphology N CHROM, Anisocytosis RARE, Macrocytosis RARE 01/29/21 15:02: Ethyl Alcohol 7.0, Acetone Level NEGATIVE 01/29/21 16:04: POC Glucose 238 H Micro: Microbiology 01/29/21 14:10 Interface Orders SARS-CoV-2 Antigen (Rapid) - Final ABG Data ABG results: ABG 01/29/21 14:17 Specimen Type ART Sample Site R Radial pH 7.19 L* Bicarbonate Actual 13.7 L Total CO2 15 Base Excess -15 L O2 Saturation 94 L ABG pCO2 35.9 ABG pO2 85 Gabriele Test Positive Liter Flow 4.0 Crit Call To/Read Back Yes Radiology Impression Brain CT 01/29/21 14:12 IMPRESSION: Chronic involutional changes of the brain. Electronically Signed: Petey Jimenez MD at 15:01 EDT Tel , Service support , Chest X-Ray 01/29/21 14:47 IMPRESSION: Complete opacification the right hemithorax worrisome for a large right pleural effusion. Correlation with CT of the chest with contrast would be useful. Electronically Signed: Petey Jimenez MD at 14:59 EDT Tel , Service support , Chest/Abdomen/Pelvis CT 01/29/21 15:24 IMPRESSION: 1. Large right pleural effusion with near total collapse of the right lung. 2. Suspect large right hilar mass with probable mediastinal invasion worrisome for bronchogenic carcinoma and correlation with CT the chest with contrast after thoracentesis is recommended. 3. Some left lung subsegmental atelectasis or pneumonitis. 4. 11 cm sebaceous cyst within the superior right flank soft tissues. Electronically Signed: Petey Jimenez MD at 16:24 EDT Tel , Service support , Chest X-Ray 01/29/21 16:25 IMPRESSION: 1. Interval placement of endotracheal tube with the tip above the simona. 2. Interval placement of nasogastric tube with tip below the diaphragm. 3. No change in a large right pleural effusion with near total collapse of the right lung. Electronically Signed: Petey Jimenez MD at 16:51 EDT Tel , Service support , Assessment & Plan Assessment/Plan (1) Severe sepsis with septic shock: PLAN: Secondary to aspiration pneumonia perhaps and possibly even SBP and decompensated alcoholic liver cirrhosis. Patient started on pressors. Admitted to the ICU. Treated with broad-spectrum antibiotics with IV Zosyn and vancomycin. Started Levophed and will continue vasopressors. (2) Acute respiratory failure: PLAN: Secondary to large right-sided pleural effusion, acute lung injury from severe sepsis and possibly aspiration. Unclear etiology of the effusion. Thoracentesis has been ordered and fluid will be sent for analysis. Patient intubated and placed on mechanical ventilation. 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 (3) Acute kidney injury: PLAN: Secondary to severe sepsis and shock most likely. Aggressively resuscitated with crystalloids. Treat underlying infection. Monitor renal function. (4) Decompensated hepatic cirrhosis: PLAN: Decompensated alcoholic liver cirrhosis with encephalopathy. Patient has a history of significant alcohol abuse. Ammonia is markedly elevated. Start treatment with lactulose via OG tube. Monitor ammonia levels. Liver ultrasound when more stable. (5) Acute encephalopathy: PLAN: Secondary to severe sepsis/shock and decompensated cirrhosis with hepatic encephalopathy. Expect improvement with treatment of underlying causes. (6) Alcohol abuse: (7) Metabolic acidosis: PLAN: Secondary to severe sepsis and shock and lactic acidemia. Expect improvement with resolution of severe sepsis and shock. (8) Hyperkalemia: PLAN: Has been treated with dextrose and insulin and sodium bicarbonate. We will repeat and continue to monitor. Expect improvement with improvement of renal function. Charges/Coding Visit Charges Inpatient E&M: 27024 Init Hosp L3
--- NOTE | 2021-01-29 18:45 | RAD_ITS ---
STUDY: X-RAY CHEST REASON FOR EXAM: Male, 65 years old. Endotracheal tube placement. TECHNIQUE: Single AP portable view of the chest. COMPARISON: 01/29/2021 (3185). FINDINGS: There is no endotracheal tube with its tip 3.3 cm above the simona. There is no enteric tube with its tip overlying the stomach. The upper port lies above the diaphragm. This should be advanced several centimeters. Stable right jugular central venous catheter. Again seen is a small straight catheter in the right hemithorax. There is marked reduction in the pleural effusion when compared prior study. The right lung remains collapsed with a pneumothorax of approximately 30% lung volume. The left lung is clear. Normal size heart. Normal mediastinum. There is soft tissue density thought to be collapsed lung in the right hilar region. Normal visualized pulmonary arteries. Normal visualized aortic arch and descending thoracic aorta. No osseous changes. Normal visualized ribs, clavicles, and shoulders. There is no demonstrated abnormality of the visualized soft tissue structures of the upper abdomen. RAD/Chest 1 View (Portable) IMPRESSION: 1. Tubes and catheters as described. 2. Progressive decrease in right pleural effusion. There is nonexpansile lungs with approximate 30% pneumothorax. Electronically Signed: Jhonathan Diaz DO at 21:06 EDT Tel [phone], Service support ,
[2021-01-29] MEDS: 0.9% Saline Lock 10 ML Syringe IV (19:00)
[2021-01-29 19:16] LABS: Allen Test Positive; Base Excess -14 mmol/L (-2 to +2); Bicarbonate 15.7 mmol/L (22-26); Blood Gas Specimen Type ART; FI02 100; Mode AC; O2 Delivery Device AeroMask; PEEP 10; PO2 42 mmHG (75-100); RR 12; SITE L Radial; SO2 59 % (95-99); Total Carbon Dioxide 17 mmol/L; Vt 450; pCO2 52.9 mmHg (35-45); pH 7.08 (7.35-7.45)
--- NOTE | 2021-01-29 19:35 | RAD_ITS ---
STUDY: X-RAY CHEST REASON FOR EXAM: Male, 65 years old. Chest tube placement. TECHNIQUE: Single AP portable view of the chest. COMPARISON: 01/29/2021 ([id number]) FINDINGS: There is no large bore right-sided chest tube. There is reduction in the right pneumothorax when compared to the previous study. There is persistent pleural effusion at the right lung base. Stable endotracheal tube, enteric tube and right jugular central venous catheter. Small right chest tube remains. The remainder of findings are essentially unchanged from exam RAD/Chest 1 View (Portable) IMPRESSION: Start numbering large-bore right chest tube with reduction in pneumothorax. The remainder of the findings is stable. Electronically Signed: Jhonathan Diaz DO at 21:37 EDT Tel [phone], Service support ,
[2021-01-29 19:41] LABS: Glucose, Body Fluid 4 mg/dL (40-70); Protein, Body Fluid 0.9 g/dL (Not Establ.)
[2021-01-29 19:58] LABS: Auto B Fluid Analyzer BKGD Ct COUNTS W/IN LIMITS (W/IN LIMITS); Color/Body Fluid YELLOW; Source- Body Fluid PLEURAL FLUID
[2021-01-29 19:59] LABS: Appearance/Body Fluid CLOUDY; Body Fluid Polynuclear WBC % 54.8 %; Body Fluid Total Cells Counted 5.601 10^3/ul; Red Cell Count/Body Fluid 0.006 10^6/ul; White Blood Count/Body Fluid 5.567 10^3/uL
[2021-01-29 20:00] LABS: Body Fluid Mononuclear WBC # 2.517 10^3/uL; Body Fluid Mononuclear WBC % 45.2 %
[2021-01-29] MEDS: Lactated Ringers 1,000 ML 999 ML IV ×2 (20:19→21:30)
--- NOTE | 2021-01-29 20:22 | PCM.OP.PRO ---
Assessment & Plan Assessment/Plan (1) Empyema of lung: PLAN: Placement of right thoracostomy tube Procedure Report Date of Procedure: 01/29/21 The patient had chest tube catheter placed in ED with >1L output and persistent pneumothorax requiring larger caliber tube. Therefore, after removing the prior chest tube dressing, the right chest was prepped with chloraprep and a 3cm transverse incision was made over the new superior intercostal space. Blunt dissection was used to spread through the subcutaneous tissue and intercostal muscle directly over the rib. Then a the tip of a marcia clamp was used to pop into the pleural space. A 28F thoracostomy tube was then inserted into this opening and placed at 10cm on the skin. The tube was connected to the Pleurvac suction device and there was immediate return of milky fluid. A small airleak was noted over the waterseal chamber. The tube was tied in with 0-silk suture and additional interrupted sutures were used to close down the skin opening around the tube. Chest Xray was performed at bedside to confirm position. Then the tube was dressed with petroleum guaze, 4X4 plain gauzes, and several strips of Elastoplast tape. Procedures Cardiovascular CF Procedures [id number]: [id number] Insertion of chest tube
--- NOTE | 2021-01-29 20:34 | PCM.OP.PRO ---
Assessment & Plan Assessment/Plan (1) Severe sepsis with septic shock: PLAN: Patient with septic shock requiring vasopressor support. Unable to obtain noninvasive BP reading and radial aa. are diminuitive under ultrasound. Therefore, I elected to place a femoral arterial line. Procedure Report Date of Procedure: 01/29/21 The left femoral artery was localized under ultrasound guidance and there was good flow with color doppler. Therefore, the left groin was prepped with Cloraprep and the vessel was accessed with a finder needle under ultrasound guidance. A guidewire was placed without difficulty using a Seldinger technique. The insertion site was enlarged with a scalpel and a 20Ga Pediatric Jugular access kit catheter was placed into the vessel over the guidewire. Once the wire was removed there was pulsatile flow through the catheter which was connected to the arterial line transducing catheter. The line was zeroed and a good waveform was present on the monitor. Given the location and the apparent propensity of the line to migrate, I elected to suture the line in place with 0 silk at three points. The site was then cleaned using a Chloraprep stick and a Chlorhexidine dressing was placed to seal the line. The patient tolerated the procedure without apparent complication. Procedures Cardiovascular CF Procedures [id number]: [id number] Insertion catheter artery
[2021-01-29 20:40] LABS: Body Fluid QC Type(s) BF2Q; Lymphocytes 1 %; Monocytes 13 %; Neutrophil (Segs) 86 %
--- NOTE | 2021-01-29 21:18 | PCM.RX.CS ---
Consult Pharmacy has been consulted to manage selected antiobiotic: Vancomycin Type of Consult: New start Suspected Infection: Sepsis Prior Doses of Antibiotics Received/Current Regimen: Medications Vancomycin HCl 1,250 mg/ (Sodium Chloride) 275 mls @ 167 mls/hr IV Q24H NELIA Vancomycin HCl 2,000 mg/ (Sodium Chloride) 540 mls @ 250 mls/hr IV X1 ONE Stop: 01/29/21 22:09 Last Admin: 01/29/21 21:00 Dose: 250 mls/hr Labs: Sodium 131 mmol/L (136-145) L 01/29/21 14:05 Potassium 6.2 mmol/L (3.5-5.1) H* 01/29/21 14:05 Chloride 100 mmol/L (98-107) 01/29/21 14:05 Carbon Dioxide 17.0 mmol/L (21.0-32.0) L 01/29/21 14:05 Anion Gap 14 (5-15) 01/29/21 14:05 BUN 68 mg/dL (7-18) H 01/29/21 14:05 Creatinine 1.94 mg/dL (0.70-1.30) H 01/29/21 14:05 Est GFR (MDRD) Af Amer 45 mL/min (>60) L 01/29/21 14:05 Est GFR (MDRD) Non-Af 37 mL/min (>60) L 01/29/21 14:05 BUN/Creatinine Ratio 35.1 RATIO (10-20) H 01/29/21 14:05 Glucose 145 mg/dL (74-106) H 01/29/21 14:05 Microbiology: Microbiology 01/29/21 18:18 Fluid - Pleural (Lung) Gram Stain - Preliminary 01/29/21 14:10 Interface Orders SARS-CoV-2 Antigen (Rapid) - Final Weight used for dosin kg Estimated Creatinine Clearance: 37 Pharmacy Plan for Drug Dosing: Pharmacy Service will continue to monitor and adjust dosing as required. Follow-Up Labs: Trough Vancomycin Labs to be done on [date and time ordered]: 01/31/21 @2030
[2021-01-29] MEDS: Chlorhexidine 480 ML 15 ML PO (22:00)
[2021-01-29 22:39] LABS: Lactic Acid 7.1 mmol/L (0.4-1.9)
--- NOTE | 2021-01-29 22:52 | EX.PCM.CONCC ---
Assessment & Plan Assessment/Plan (1) Pleural effusion on right: (2) Empyema of lung: (3) Acute kidney injury: (4) Acute respiratory failure: (5) Alcohol abuse: (6) Severe sepsis with septic shock: PLAN: RECOMMENDATIONS: 1. Initiate broad-spectrum healthcare associated antibiotics 2. Aggressive fluid resuscitation 3. Continue mechanical ventilation 4. Initiate Levophed and possibly vasopressin 5. Wean oxygen as tolerated 6. Hold propofol if possible to assess neuro status IMPRESSIONS: 1. Septic shock secondary to large right-sided empyema Patient with over 5 L of purulent fluid removed from the chest. This is showing a polymicrobial infection. Broad-spectrum antibiotics have been initiated. Patient has been started on Levophed. Patient will likely require multiple pressors. Very poor prognosis given his baseline status. May start stress dose steroids if patient requires 2 pressors. 2. Acute hypoxic respiratory failure secondary to right-sided empyema Patient currently intubated and doing well. Will obtain an ABG in an hour. Wean oxygen as tolerated. Patient may have a component of reexpansion pulmonary edema. 3. Probable hepatic cirrhosis with metabolic encephalopathy Patient with significantly elevated ammonia. Lactulose has been ordered. Anticipate possible work-up if patient is able to survive the acute insult. 4. Acute kidney injury Anticipate prerenal etiology secondary to #1. We will continue to support hemodynamics. Follow kidney function. May require renal replacement therapy if acidosis does not improve with stabilization of hemodynamics. Monitor urine output. 5. Alcohol abuse/delayed presentation/poor history/debility Complicates care, management, recovery and prognosis. We will monitor for withdrawal symptoms if patient improves. Overall very poor prognosis. TIME: 140 minutes of critical care time spent addressing patient's septic shock, acute hypoxic respiratory failure, hepatic cirrhosis, acute kidney injury, review of all data and collaboration with care team (6:30 PM to 11 PM) HPI Consult Data Date of Consult: 01/29/21 HPI Narrative HPI Narrative: LUCINA AGUIRRE is a 65 M, with past medical history listed below, who presents to [facility] 01/29/2021 secondary to decreased mental status. Patient reportedly has a history of alcohol abuse and possible liver disease and presented from his house via EMS. Patient reportedly lives alone in an apartment near his son had spoken to him to the day previously. He had urged him to go to the doctor at that time. Son went to check on his dad today and found to be unresponsive. EMS was called. Patient reportedly has not had a COVID-19 vaccination. Other information was not available except for the fact that he was 80% on room air when they arrived. In the ER, patient was afebrile, but tachycardic at 156 bpm. Patient was normotensive at 106/69, but requiring 4 L nasal cannula to maintain saturations. ER staff noted the patient to be obtunded, so he was intubated. Patient did receive a 30 cc/kg fluid bolus and chest x-ray showed a possible right-sided pneumonia. Patient followed up with a CT scan showing a large pleural effusion. Patient had some hyperkalemia received sodium bicarb, calcium gluconate, dextrose and insulin. Patient had worsening hypoxia and hypotension during the ER stay. Patient had a thoracentesis with over 3 L removed. Chest x-ray showed approximate one third of lung aerating. Output was a putrid cloudy discharge with a foul odor. Patient was transported to the intensive care unit. On arrival to intensive care unit, patient was hypotensive. Patient was placed on pressor agents relatively immediately. Additional fluid was drawn out of the chest, but on evaluation by myself, surgery was called for a chest tube placement. Dr. Tilley graciously arrived and assisted by placing a chest tube and a left femoral central line. Patient was noted to be hypotensive. Within 1 hour of standing labs, patient was noted to have a positive Gram stain. Additional laboratory data was consistent with empyema. Unable to obtain review of systems secondary to mental status. [facility] Medical History Alcohol abuse Traumatic brain injury Home Medications Unobtainable 01/29/21 [History Last Taken Unknown] Allergy/AdvReac Type Severity Reaction Status Date / Time Unable to Assess Allergy Verified 01/29/21 14:16 Social History Smoking Status: Current every day smoker tobacco type: cigarettes ROS Review of Systems ROS Unobtainable: due to encephalopathy Physical Exam Const General Appearance: lethargic, ill appearing Positive for acutely and chronically, odor of alcohol detected, intubated and patient mechanically ventilated Orientation / Consciousness: obtunded HEENT normocephalic and head/scalp atraumatic HEENT Narrative: Poor dentition Eyes Eyes Narrative: Scleral injection with icterus noted Neck full ROM and No nuchal rigidity Chest Chest Narrative: No breath sounds on the right side noted. Did have a chest tube placed and eventually over 5 L of fluid removed Chest: chest tube right Resp Resp Narrative: Rhonchi noted in left lung. Patient with rhonchi in the right lung once fluid was drained. Percussion: dullness Upper: right, Mid: right and Lower: right Cardio regular rhythm, S1 normal heart sound, S2 normal heart sound, no murmurs, no rub and no gallops Rate: tachycardic GI Palpation: soft; Negative for tender, guarding, rigid, pulsatile mass or abdominal wall crepitus Percussion: fluid wave Extremity General Extremity: clubbing and edema bilateral (4+) lower extremity; Negative for cyanosis Skin Skin Narrative: Various abrasions noted. No areas of active infection appreciated. Neuro Neuro Narrative: Positive gag and cough reflexes. Melisa Coma Scale: document GCS findings None Extensor Response None 4 Psych Appearance: intubated Lab / Micro Data Result Diagrams: 01/29/21 15:02 01/29/21 14:05 Labs: Laboratory Results - last 24 hr 01/29/21 14:05: Total Bilirubin 1.00, Direct Bilirubin 0.46 H, AST 29, ALT 23, Alkaline Phosphatase 133 H, Troponin I High Sens 168 H*, Total Protein 8.2, Albumin 1.6 L, Globulin 6.6 H 01/29/21 14:05: WBC Cancelled, Corrected WBC Cancelled, RBC Cancelled, Hgb Cancelled, Hct Cancelled, MCV Cancelled, MCH Cancelled, MCHC Cancelled, RDW Std Deviation Cancelled, RDW Coeff of Tony Cancelled, Plt Count Cancelled, MPV Cancelled, Immature Gran % (Auto) Cancelled, Neut % (Auto) Cancelled, Lymph % (Auto) Cancelled, [place] % (Auto) Cancelled, Eos % (Auto) Cancelled, Baso % (Auto) Cancelled, Absolute Neuts (auto) Cancelled, Absolute Lymphs (auto) Cancelled, Total Counted Cancelled, Neutrophils % (Manual) Cancelled, Band Neutrophils % Cancelled, Lymphocytes % (Manual) Cancelled, Monocytes % (Manual) Cancelled, Eosinophils % (Manual) Cancelled, Basophils % (Manual) Cancelled, Metamyelocytes % Cancelled, Myelocytes % Cancelled, Promyelocytes % Cancelled, Blast Cells % Cancelled, Plasma Cell % (Manual) Cancelled, Other Cells % Cancelled, Nucleated RBC % Cancelled, Nucleated RBCs/100 WBC Cancelled, Differential Comment Cancelled, Diff Path Review Cancelled, Hypersegmented Neuts Cancelled, Atypical Lymphocytes Cancelled, Reactive Lymphocytes Cancelled, Smudge Cells Cancelled, Toxic Granulation Cancelled, Toxic Vacuolation Cancelled, Dohle Bodies Cancelled, Bryant Rods Cancelled, Platelet Estimate Cancelled, Plt Morphology Comment Cancelled, RBC Morphology Cancelled, Polychromasia Cancelled, Hypochromasia Cancelled, Poikilocytosis Cancelled, Basophilic Stippling Cancelled, Anisocytosis Cancelled, Microcytosis Cancelled, Macrocytosis Cancelled, Spherocytes Cancelled, Sickle Cells Cancelled, Target Cells Cancelled, Tear Drop Cells Cancelled, Ovalocytes Cancelled, Stomatocytes Cancelled, [place] Bodies Cancelled, [place] Cells Cancelled, Bite Cells Cancelled, Crenated Cell Cancelled, Acanthocytes (Spur) Cancelled, Rouleaux Cancelled, Schistocytes Cancelled 01/29/21 14:05: PT Cancelled, INR Cancelled, APTT Cancelled 01/29/21 14:05: Sodium 131 L, Potassium 6.2 H*, Chloride 100, Carbon Dioxide 17.0 L, Anion Gap 14, BUN 68 H, Creatinine 1.94 H, Estim Creat Clear Calc 37.22, Est GFR (MDRD) Af Amer 45 L, Est GFR (MDRD) Non-Af 37 L, BUN/Creatinine Ratio 35.1 H, Glucose 145 H, Calcium 9.2, Total Creatine Kinase 45, TSH 6.06 H 01/29/21 14:05: Acetone Level Cancelled 01/29/21 14:05: Lactic Acid 7.9 H* 01/29/21 14:05: Ethyl Alcohol Cancelled 01/29/21 14:11: POC Glucose 156 H 01/29/21 15:02: Ammonia 582.0 H 01/29/21 15:02: PT 22.2 H, INR 2.0, APTT 34.8 01/29/21 15:02: WBC 44.6 H*, RBC 4.28 L, Hgb 11.9 L, Hct 39.1 L, MCV 91.4, MCH 27.8, MCHC 30.4 L, RDW Std Deviation 71.7 H, RDW Coeff of Tony 22.7 H, Plt Count 123 L, MPV 12.3 H, Immature Gran % (Auto) 2.800 H, Neut % (Auto) 89.0 H, Lymph % (Auto) 2.2 L, [place] % (Auto) 5.7, Eos % (Auto) 0.2, Baso % (Auto) 0.1, Absolute Neuts (auto) 39.7 H, Absolute Lymphs (auto) 1.00, Nucleated RBC % 0.5, Differential Comment SEE COMMENTS, Diff Path Review September foll, Toxic Granulation RARE, Platelet Estimate SLT DEC, RBC Morphology N CHROM, Anisocytosis RARE, Macrocytosis RARE 01/29/21 15:02: Ethyl Alcohol 7.0, Acetone Level NEGATIVE 01/29/21 16:04: POC Glucose 238 H 01/29/21 18:18: Fluid Glucose 4 L*, Fluid Total Protein 0.9, Fluid LDH TNP 01/29/21 18:18: Fluid Source PLEURAL FLUID, Fluid Color YELLOW, Fluid Appearance CLOUDY, Fluid WBC 5.567, Fluid RBC 0.006, Fluid Tot Cell Count 5.601, Fld Polynuclear WBCs # 3.050, Fld Polynuclear WBCs % 54.8, Fluid Mononuclear WBCs 2.517, Fld Mononuclear WBCs % 45.2, Fluid Neutrophils 86, Fluid Lymphocytes 1, Fluid Monocytes 13, Fl Pathologist Comment May follow, Fluid Comment 2 SEE COMMENT 01/29/21 21:55: Lactic Acid 7.1 H* Micro: Microbiology 01/29/21 18:18 Fluid - Pleural (Lung) Gram Stain - Preliminary 01/29/21 14:10 Interface Orders SARS-CoV-2 Antigen (Rapid) - Final ABG Data ABG results: ABG 01/29/21 01/29/21 14:17 19:08 Specimen Type ART ART Sample Site R Radial L Radial pH 7.19 L* 7.08 L* Bicarbonate Actual 13.7 L 15.7 L Total CO2 15 17 Base Excess -15 L -14 L O2 Saturation 94 L 59 L O2 % 100 ABG pCO2 35.9 52.9 H ABG pO2 85 42 L Gabriele Test Positive Positive Respiration Rate 12 O2 Delivery Device AeroMask Liter Flow 4.0 Vent Mode AC Tidal Volume 450 POC PEEP 10 Crit Call To/Read Back Yes Yes Blood Gas Notified Whom KARMA Rhythm Strip Rhythm Strip: Sinus Tach Rate: 157 Ectopy: None Radiology Impression Brain CT 01/29/21 14:12 IMPRESSION: Chronic involutional changes of the brain. Electronically Signed: Petey Jimenez MD at 15:01 EDT Tel , Service support , Chest X-Ray 01/29/21 14:47 IMPRESSION: Complete opacification the right hemithorax worrisome for a large right pleural effusion. Correlation with CT of the chest with contrast would be useful. Electronically Signed: Petey Jimenez MD at 14:59 EDT Tel , Service support , Chest/Abdomen/Pelvis CT 01/29/21 15:24 IMPRESSION: 1. Large right pleural effusion with near total collapse of the right lung. 2. Suspect large right hilar mass with probable mediastinal invasion worrisome for bronchogenic carcinoma and correlation with CT the chest with contrast after thoracentesis is recommended. 3. Some left lung subsegmental atelectasis or pneumonitis. 4. 11 cm sebaceous cyst within the superior right flank soft tissues. Electronically Signed: Petey Jimenez MD at 16:24 EDT Tel , Service support , Chest X-Ray 01/29/21 16:25 IMPRESSION: 1. Interval placement of endotracheal tube with the tip above the simona. 2. Interval placement of nasogastric tube with tip below the diaphragm. 3. No change in a large right pleural effusion with near total collapse of the right lung. Electronically Signed: Petey Jimenez MD at 16:51 EDT Tel , Service support , Chest X-Ray 01/29/21 18:10 IMPRESSION: 1. Right jugular central venous catheter not previously seen. 2. The catheter within the right hemithorax. There is a decrease in the right pleural effusion. There is collapse of the visualized right lung apex with approximate 10% pneumothorax. 3. Resolution of the left mediastinal shift seen on the prior study. Electronically Signed: Jhonathan Diaz DO at 18:55 EDT Tel [phone], Service support , Chest X-Ray 01/29/21 18:45 IMPRESSION: 1. Tubes and catheters as described. 2. Progressive decrease in right pleural effusion. There is nonexpansile lungs with approximate 30% pneumothorax. Electronically Signed: Jhonathan Diaz DO at 21:06 EDT Tel [phone], Service support , Chest X-Ray 01/29/21 19:35 IMPRESSION: Start numbering large-bore right chest tube with reduction in pneumothorax. The remainder of the findings is stable. Electronically Signed: Jhonathan Diaz DO at 21:37 EDT Tel [phone], Service support , Charges/Coding Procedures Hospitalists Procedures: 24964 Critial Care 1st Hr Multi Select Codes Hospitalists' Procedures Procedures: 99380 Critial Care Addl 30 Min (140 minutes total critical care time (78552 x 3))
[2021-01-29] MEDS: Lactulose 20 GM/30 ML UDC 40 GM GT (23:00)
[2021-01-30] VITALS (77 sets, daily range): BP systolic 48–115; BP diastolic 21–80; PULSE 122–268; RESP 12–37; TEMP 35.9–37.9; O2SAT 85–100
[2021-01-30 04:32] LABS: Absolute Lymphocyte Count 1.37 X10^3/uL (0.83-4.51); Absolute Neutrophil Count 31.5 X10^3/uL (2.0-7.7); Basophil# 0.13 X10^3/uL; Basophil% 0.4 % (0-1); Eosinophil# 0.06 X10^3/uL; Eosinophils% 0.2 % (0-5); Hematocrit 37.6 % (40-54); Hemoglobin 11.8 g/dL (13.0-16.5); Lymphocyte # 1.37 X10^3/ul (0.83-4.51); Lymphocyte % 3.9 % (19-41); Mean Corp Hgb Conc 31.4 g/dL (32-36); Mean Corpuscular Hgb 27.8 pg (27.0-32.0); Mean Corpuscular Volume 88.7 fL (80-94); Mean Platelet Vol. 12.4 fl (6.2-12.0); Monocyte# 1.89 X10^3/uL; Monocyte% 5.4 % (0-10); NRBC Flagged by Analyzer 0.7 % (0-5); Neutrophil # 31.48 X10^3/uL (2.7-7.7); Neutrophil % 89.3 % (47-70); POSITIVE COUNT YES; POSITIVE DIFFERENTIAL YES; POSITIVE MORPHOLOGY YES; Platelet Count 123 K/mm3 (150-450); RBC Distribution Width CV 22.6 % (11.6-14.6); RBC Distribution Width SD 66.3 fl (35.1-43.9); Red Blood Count 4.24 M/mm3 (4.6-6.2)
[2021-01-30 04:34] LABS: Differential Indicated SCAN CRITERIA MET; White Blood Count 35.2 K/mm3 (4.4-11.0)
[2021-01-30 04:51] LABS: Anisocytosis 1+; Differential Comment SCANNED; Macrocytosis 1+; Polychromasia RARE
[2021-01-30 04:53] LABS: ALB/GLOB Ratio 0.2 RATIO (0.9-2.4); AST(SGOT) 214 U/L (15-37); Alanine Aminotransfer ALT/SGPT 51 U/L (16-61); Albumin, Serum 1.2 g/dL (3.2-5.0); Alkaline Phosphatase 470 U/L (45-117); Anion Gap 13 (5-15); BUN 63 mg/dL (7-18); BUN/Creat Ratio 32.1 RATIO (10-20); Calcium,Total 7.9 mg/dL (8.5-10.1); Chloride 104 mmol/L (98-107); Creatinine, Serum 1.96 mg/dL (0.70-1.30); EST Glomerular Filtration Rate 37 mL/min (>60); Est Glom Filt Rate - Afr Amer 44 mL/min (>60); Estimated Creatinine Clearance 36.84 ml/min; Globulin 5.1 g/dL (2.2-4.2); Glucose 108 mg/dL (74-106); LDH 362 U/L (87-241); Magnesium 2.1 mg/dL (1.6-2.6); Phosphorus 4.5 mg/dL (2.5-4.9); Potassium 5.3 mmol/L (3.5-5.1); Protein, Total 6.3 g/dL (6.4-8.2); Sodium Level 134 mmol/L (136-145)
[2021-01-30] MEDS: Lactulose 20 GM/30 ML UDC 40 GM GT ×2 (05:15→12:47)
[2021-01-30 05:45] LABS: Base Excess -13 mmol/L (-2 to +2); Bicarbonate 13.7 mmol/L (22-26); Blood Gas Specimen Type ART; FI02 40; Mode AC; O2 Delivery Device Adult Vent; PEEP 10; PO2 90 mmHG (75-100); RR 12; SITE Art Line; SO2 96 % (95-99); Total Carbon Dioxide 15 mmol/L; Vt 450; pCO2 26.9 mmHg (35-45); pH 7.31 (7.35-7.45)
--- NOTE | 2021-01-30 06:57 | PN.CC_ITS ---
Assessment & Plan Assessment/Plan (1) Pleural effusion on right: (2) Empyema of lung: (3) Acute kidney injury: (4) Acute respiratory failure: (5) Alcohol abuse: (6) Severe sepsis with septic shock: PLAN: RECOMMENDATIONS: 1. Continue broad-spectrum healthcare associated antibiotics 2. Slow down aggressive fluid resuscitation 3. Continue mechanical ventilation 4. Attempt to wean pressors as tolerated. Add stress dose steroids 5. Wean oxygen as tolerated 6. Hold propofol if possible to assess neuro status IMPRESSIONS: 1. Septic shock secondary to large right-sided empyema Patient with over 5 L of purulent fluid removed from the chest. This is showing a polymicrobial infection on Gram stain. Broad-spectrum antibiotics have been initiated. Patient has been started on multiple pressors. Very poor prognosis given his baseline status. May start stress dose steroids if patient requires 2 pressors. 2. Acute hypoxic respiratory failure secondary to right-sided empyema Patient currently intubated and doing well. Will obtain an ABG in an hour. Wean oxygen as tolerated. Patient may have a component of reexpansion pulmonary edema. 3. Probable hepatic cirrhosis with metabolic encephalopathy Patient with significantly elevated ammonia. Lactulose has been ordered. Anticipate possible work-up if patient is able to survive the acute insult. 4. Acute kidney injury Anticipate prerenal etiology secondary to #1. We will continue to support hemodynamics. Follow kidney function. May require renal replacement therapy if acidosis does not improve with stabilization of hemodynamics. Monitor urine output. 5. Alcohol abuse/delayed presentation/poor history/debility Complicates care, management, recovery and prognosis. We will monitor for withdrawal symptoms if patient improves. Overall very poor prognosis. TIME: 40 minutes of critical care time spent addressing patient's septic shock, acute hypoxic respiratory failure, hepatic cirrhosis, acute kidney injury, review of all data and collaboration with care team (4 AM to 6 AM) Subjective Subjective Patient continued to have marginal status. Patient currently on Levophed, vasopressin and Duncan-Synephrine to maintain blood pressures. Patient has persisted in tachycardia, but oxygenation has improved. Patient is not interactive at this time. Objective Data Objective Data Vital Signs: Vital Signs Temp Pulse Resp BP Pulse Ox 37.7 C H 169 H 21 H 92/59 L 100 01/30/21 04:00 01/30/21 06:41 01/30/21 06:41 01/30/21 04:45 01/30/21 06:41 Oxygen Flow Rate (L/min) 8 Oxygen Delivery Method Mechanical Ventilator Weight: 82.1 kg Body Mass Index (BMI) 27.3 Intake & Output: Intake and Output for Last 24 Hours 01/28/21 01/29/21 01/30/21 23:59 23:59 23:59 Intake Total 8051.90 / 8056.90 1452.65 / 1452.65 Balance 8051.90 / 8056.90 1452.65 / 1452.65 Lab / Micro Data Result Diagrams: 01/30/21 04:15 01/30/21 04:15 Labs: Laboratory Results - last 24 hr 01/29/21 14:05: Total Bilirubin 1.00, Direct Bilirubin 0.46 H, AST 29, ALT 23, Alkaline Phosphatase 133 H, Troponin I High Sens 168 H*, Total Protein 8.2, Albumin 1.6 L, Globulin 6.6 H 01/29/21 14:05: WBC Cancelled, Corrected WBC Cancelled, RBC Cancelled, Hgb Cancelled, Hct Cancelled, MCV Cancelled, MCH Cancelled, MCHC Cancelled, RDW Std Deviation Cancelled, RDW Coeff of Tony Cancelled, Plt Count Cancelled, MPV Cancelled, Immature Gran % (Auto) Cancelled, Neut % (Auto) Cancelled, Lymph % (Auto) Cancelled, [place] % (Auto) Cancelled, Eos % (Auto) Cancelled, Baso % (Auto) Cancelled, Absolute Neuts (auto) Cancelled, Absolute Lymphs (auto) Cancelled, Total Counted Cancelled, Neutrophils % (Manual) Cancelled, Band Neutrophils % Cancelled, Lymphocytes % (Manual) Cancelled, Monocytes % (Manual) Cancelled, Eosinophils % (Manual) Cancelled, Basophils % (Manual) Cancelled, Metamyelocytes % Cancelled, Myelocytes % Cancelled, Promyelocytes % Cancelled, Blast Cells % Cancelled, Plasma Cell % (Manual) Cancelled, Other Cells % Cancelled, Nucleated RBC % Cancelled, Nucleated RBCs/100 WBC Cancelled, Differential Comment Cancelled, Diff Path Review Cancelled, Hypersegmented Neuts Cancelled, Atypical Lymphocytes Cancelled, Reactive Lymphocytes Cancelled, Smudge Cells Cancelled, Toxic Granulation Cancelled, Toxic Vacuolation Cancelled, Dohle Bodies Cancelled, Bryant Rods Cancelled, Platelet Estimate Cancelled, Plt Morphology Comment Cancelled, RBC Morphology Cancelled, Polychromasia Cancelled, Hypochromasia Cancelled, Poikilocytosis Cancelled, Basophilic Stippling Cancelled, Anisocytosis Cancelled, Microcytosis Cancelled, Macrocytosis Cancelled, Spherocytes Cancelled, Sickle Cells Cancelled, Target Cells Canc elled, Tear Drop Cells Cancelled, Ovalocytes Cancelled, Stomatocytes Cancelled, [place] Bodies Cancelled, Logan Cells Cancelled, Bite Cells Cancelled, Crenated Cell Cancelled, Acanthocytes (Spur) Cancelled, Rouleaux Cancelled, Schistocytes Cancelled 01/29/21 14:05: PT Cancelled, INR Cancelled, APTT Cancelled 01/29/21 14:05: Sodium 131 L, Potassium 6.2 H*, Chloride 100, Carbon Dioxide 17.0 L, Anion Gap 14, BUN 68 H, Creatinine 1.94 H, Estim Creat Clear Calc 37.22, Est GFR (MDRD) Af Amer 45 L, Est GFR (MDRD) Non-Af 37 L, BUN/Creatinine Ratio 35.1 H, Glucose 145 H, Calcium 9.2, Total Creatine Kinase 45, TSH 6.06 H 01/29/21 14:05: Acetone Level Cancelled 01/29/21 14:05: Lactic Acid 7.9 H* 01/29/21 14:05: Ethyl Alcohol Cancelled 01/29/21 14:11: POC Glucose 156 H 01/29/21 15:02: Ammonia 582.0 H 01/29/21 15:02: PT 22.2 H, INR 2.0, APTT 34.8 01/29/21 15:02: WBC 44.6 H*, RBC 4.28 L, Hgb 11.9 L, Hct 39.1 L, MCV 91.4, MCH 27.8, MCHC 30.4 L, RDW Std Deviation 71.7 H, RDW Coeff of Tony 22.7 H, Plt Count 123 L, MPV 12.3 H, Immature Gran % (Auto) 2.800 H, Neut % (Auto) 89.0 H, Lymph % (Auto) 2.2 L, [place] % (Auto) 5.7, Eos % (Auto) 0.2, Baso % (Auto) 0.1, Absolute Neuts (auto) 39.7 H, Absolute Lymphs (auto) 1.00, Nucleated RBC % 0.5, Differential Comment SEE COMMENTS, Diff Path Review May foll, Toxic Granulation RARE, Platelet Estimate SLT DEC, RBC Morphology N CHROM, Anisocytosis RARE, Macrocytosis RARE 01/29/21 15:02: Ethyl Alcohol 7.0, Acetone Level NEGATIVE 01/29/21 16:04: POC Glucose 238 H 01/29/21 18:18: Fluid Glucose 4 L*, Fluid Total Protein 0.9, Fluid LDH TNP 01/29/21 18:18: Fluid Source PLEURAL FLUID, Fluid Color YELLOW, Fluid Appearance CLOUDY, Fluid WBC 5.567, Fluid RBC 0.006, Fluid Tot Cell Count 5.601, Fld Polynuclear WBCs # 3.050, Fld Polynuclear WBCs % 54.8, Fluid Mononuclear WBCs 2.517, Fld Mononuclear WBCs % 45.2, Fluid Neutrophils 86, Fluid Lymphocytes 1, Fluid Monocytes 13, Fl Pathologist Comment May follow, Fluid Comment 2 SEE COMMENT 01/29/21 21:55: Lactic Acid 7.1 H* 01/30/21 04:15: Sodium Cancelled, Potassium Cancelled, Chloride Cancelled, Carbon Dioxide Cancelled, Anion Gap Cancelled, BUN Cancelled, Creatinine Cancel led, Estim Creat Clear Calc Cancelled, Est GFR (MDRD) Af Amer Cancelled, Est GFR (MDRD) Non-Af Cancelled, BUN/Creatinine Ratio Cancelled, Glucose Cancelled, Calcium Cancelled, Magnesium Cancelled, Total Bilirubin Cancelled, AST Cancelled, ALT Cancelled, Alkaline Phosphatase Cancelled, Lactate Dehydrogenase Cancelled, Total Protein Cancelled, Albumin Cancelled, Globulin Cancelled, Albumin/Globulin Ratio Cancelled 01/30/21 04:15: WBC 35.2 H*, RBC 4.24 L, Hgb 11.8 L, Hct 37.6 L, MCV 88.7, MCH 27.8, MCHC 31.4 L, RDW Std Deviation 66.3 H, RDW Coeff of Tony 22.6 H, Plt Count 123 L, MPV 12.4 H, Immature Gran % (Auto) 0.800, Neut % (Auto) 89.3 H, Lymph % (Auto) 3.9 L, [place] % (Auto) 5.4, Eos % (Auto) 0.2, Baso % (Auto) 0.4, Absolute Neuts (auto) 31.5 H, Absolute Lymphs (auto) 1.37, Nucleated RBC % 0.7, Differential Comment SCANNED, Diff Path Review May , Polychromasia RARE, Anisocytosis 1+, Macrocytosis 1+ 01/30/21 04:15: Sodium 134 L, Potassium 5.3 H, Chloride 104, Carbon Dioxide 17.0 L, Anion Gap 13, BUN 63 H, Creatinine 1.96 H, Estim Creat Clear Calc 36.84, Est GFR (MDRD) Af Amer 44 L, Est GFR (MDRD) Non-Af 37 L, BUN/Creatinine Ratio 32.1 H , Glucose 108 H, Calcium 7.9 L, Phosphorus 4.5, Magnesium 2.1, Total Bilirubin 1.00, AST 214 H, ALT 51, Alkaline Phosphatase 470 H, Lactate Dehydrogenase 362 H , Total Protein 6.3 L, Albumin 1.2 L, Globulin 5.1 H, Albumin/Globulin Ratio 0.2 L 01/30/21 04:15: Ammonia 115.0 H Micro: Microbiology 01/29/21 18:18 Fluid - Pleural (Lung) Gram Stain - Preliminary 01/29/21 14:10 Interface Orders SARS-CoV-2 Antigen (Rapid) - Final ABG Data ABG results: ABG 01/29/21 01/29/21 01/30/21 14:17 19:08 05:38 Specimen Type ART ART ART Sample Site R Radial L Radial Art Line pH 7.19 L* 7.08 L* 7.31 L Bicarbonate Actual 13.7 L 15.7 L 13.7 L Total CO2 15 17 15 Base Excess -15 L -14 L -13 L O2 Saturation 94 L 59 L 96 O2 % 100 40 ABG pCO2 35.9 52.9 H 26.9 L ABG pO2 85 42 L 90 Gabriele Test Positive Positive Respiration Rate 12 12 O2 Delivery Device AeroMask Adult Vent Liter Flow 4.0 Vent Mode AC AC Tidal Volume 450 450 POC PEEP 10 10 Crit Call To/Read Back Yes Yes Blood Gas Notified Whom [facility] Diagnostic Testing: Radiology Impression Brain CT 01/29/21 14:12 IMPRESSION: Chronic involutional changes of the brain. Electronically Signed: Petey Jimenez MD at 15:01 EDT Tel , Service support , Chest X-Ray 01/29/21 14:47 IMPRESSION: Complete opacification the right hemithorax worrisome for a large right pleural effusion. Correlation with CT of the chest with contrast would be useful. Electronically Signed: Petey Jimenez MD at 14:59 EDT Tel , Service support , Chest/Abdomen/Pelvis CT 01/29/21 15:24 IMPRESSION: 1. Large right pleural effusion with near total collapse of the right lung. 2. Suspect large right hilar mass with probable mediastinal invasion worrisome for bronchogenic carcinoma and correlation with CT the chest with contrast after thoracentesis is recommended. 3. Some left lung subsegmental atelectasis or pneumonitis. 4. 11 cm sebaceous cyst within the superior right flank soft tissues. Electronically Signed: Petey Jimenez MD at 16:24 EDT Tel , Service support , Chest X-Ray 01/29/21 16:25 IMPRESSION: 1. Interval placement of endotracheal tube with the tip above the simona. 2. Interval placement of nasogastric tube with tip below the diaphragm. 3. No change in a large right pleural effusion with near total collapse of the right lung. Electronically Signed: Petey Jimenez MD at 16:51 EDT Tel , Service support , Chest X-Ray 01/29/21 18:10 IMPRESSION: 1. Right jugular central venous catheter not previously seen. 2. The catheter within the right hemithorax. There is a decrease in the right pleural effusion. There is collapse of the visualized right lung apex with approximate 10% pneumothorax. 3. Resolution of the left mediastinal shift seen on the prior study. Electronically Signed: Jhonathan Diaz DO at 18:55 EDT Tel [phone], Service support , Chest X-Ray 01/29/21 18:45 IMPRESSION: 1. Tubes and catheters as described. 2. Progressive decrease in right pleural effusion. There is nonexpansile lungs with approximate 30% pneumothorax. Electronically Signed: Jhonathan Diaz DO at 21:06 EDT Tel [phone], Service support , Chest X-Ray 01/29/21 19:35 IMPRESSION: Start numbering large-bore right chest tube with reduction in pneumothorax. The remainder of the findings is stable. Electronically Signed: Jhonathan Diaz DO at 21:37 EDT Tel [phone], Service support , Rhythm Strip Rhythm Strip: Sinus Tach Rate: 157 Ectopy: None Physical Exam Const General Appearance: lethargic, ill appearing Positive for acutely and chronically, intubated and patient mechanically ventilated Orientation / Consciousness: obtunded HEENT normocephalic and head/scalp atraumatic HEENT Narrative: Poor dentition Eyes Eyes Narrative: Scleral injection with icterus noted Neck full ROM and No nuchal rigidity Chest Chest Narrative: Bilateral breath sounds Chest: chest tube right Resp Resp Narrative: Rhonchi noted in both sides. No significant wheezing noted. Percussion: dullness Upper: right, Mid: right and Lower: right Cardio regular rhythm, S1 normal heart sound, S2 normal heart sound, no murmurs, no rub and no gallops Rate: tachycardic GI Palpation: soft; Negative for tender, guarding, rigid, pulsatile mass or abdominal wall crepitus Percussion: fluid wave Extremity General Extremity: clubbing and edema bilateral (4+) lower extremity; Negative for cyanosis Skin Skin Narrative: Various abrasions noted. No areas of active infection appreciated. Neuro Neuro Narrative: Positive gag and cough reflexes. [place] Coma Scale: document GCS findings None Extensor Response None 4 Psych Appearance: intubated Charges/Coding Procedures Hospitalists Procedures: 36233 Critial Care 1st Hr
--- NOTE | 2021-01-30 07:56 | RAD_ITS ---
STUDY: X-RAY CHEST REASON FOR EXAM: Male, 65 years old. Chest tube assessment TECHNIQUE: Single AP portable view of the chest. COMPARISON: Comparison is made with prior study dated 01/29/2021 at 11:27 PM. FINDINGS: The endotracheal tube is in situ. The tip is at 3 cm proximal to the simona. An orogastric tube is seen with the tip below the left hemidiaphragm. A right-sided chest tube has been placed. The tip is in the upper midportion of the right upper lobe. Tiny residual right apical pneumothorax. A right-sided central venous catheter has been placed with the tip at the junction of the superior vena cava and right atrium. Persistent consolidation in the right lung. Blunting of the left costophrenic angle. Normal size heart. Normal mediastinum and bridgette. Normal visualized pulmonary arteries. Normal visualized aortic arch and descending thoracic aorta. Normal visualized thoracic spine. Normal visualized ribs, clavicles, and shoulders. There is no demonstrated abnormality of the visualized soft tissue structures of the upper abdomen. RAD/Chest 1 View (Portable) IMPRESSION: The tip of the right chest tube is in the upper midportion of the right upper lobe. Tiny residual right apical pneumothorax. Electronically Signed: Jc Rojo MD at 8:42 EDT , Service support ,
--- NOTE | 2021-01-30 09:09 | PCM.PN.HOSP ---
Subjective Subjective Patient was seen and examined. He is intubated, sedated on Fentanyl. Right chest tube has sero-purulent discharge - copious. Remains also hypotensive- on 3 pressors, IV hydrocortisone. Objective Data Objective Data Vital Signs: Vital Signs Temp Pulse Resp BP Pulse Ox 96.6 F L 165 H 20 H 101/69 93 01/30/21 09:00 01/30/21 09:00 01/30/21 09:00 01/30/21 09:00 01/30/21 09:00 Oxygen Flow Rate (L/min) 8 Oxygen Delivery Method Mechanical Ventilator Weight: 82.1 kg Body Mass Index (BMI) 27.3 Intake & Output: Intake and Output for Last 24 Hours 01/28/21 01/29/21 01/30/21 23:59 23:59 23:59 Intake Total 8051.90 / 8056.90 1910.93 / 1910.93 Output Total 85 / 85 Balance 8051.90 / 8056.90 1825.93 / 1825.93 Lab / Micro Data Result Diagrams: 01/30/21 04:15 01/30/21 04:15 Labs: Laboratory Results - last 24 hr 01/29/21 14:05: Total Bilirubin 1.00, Direct Bilirubin 0.46 H, AST 29, ALT 23, Alkaline Phosphatase 133 H, Troponin I High Sens 168 H*, Total Protein 8.2, Albumin 1.6 L, Globulin 6.6 H 01/29/21 14:05: WBC Cancelled, Corrected WBC Cancelled, RBC Cancelled, Hgb Cancelled, Hct Cancelled, MCV Cancelled, MCH Cancelled, MCHC Cancelled, RDW Std Deviation Cancelled, RDW Coeff of Tony Cancelled, Plt Count Cancelled, MPV Cancelled, Immature Gran % (Auto) Cancelled, Neut % (Auto) Cancelled, Lymph % (Auto) Cancelled, [place] % (Auto) Cancelled, Eos % (Auto) Cancelled, Baso % (Auto) Cancelled, Absolute Neuts (auto) Cancelled, Absolute Lymphs (auto) Cancelled, Total Counted Cancelled, Neutrophils % (Manual) Cancelled, Band Neutrophils % Cancelled, Lymphocytes % (Manual) Cancelled, Monocytes % (Manual) Cancelled, Eosinophils % (Manual) Cancelled, Basophils % (Manual) Cancelled, Metamyelocytes % Cancelled, Myelocytes % Cancelled, Promyelocytes % Cancelled, Blast Cells % Cancelled, Plasma Cell % (Manual) Cancelled, Other Cells % Cancelled, Nucleated RBC % Cancelled, Nucleated RBCs/100 WBC Cancelled, Differential Comment Cancelled, Diff Path Review Cancelled, Hypersegmented Neuts Cancelled, Atypical Lymphocytes Cancelled, Reactive Lymphocytes Cancelled, Smudge Cells Cancelled, Toxic Granulation Cancelled, Toxic Vacuolation Cancelled, Dohle Bodies Cancelled, Bryant Rods Cancelled, Platelet Estimate Cancelled, Plt Morphology Comment Cancelled, RBC Morphology Cancelled, Polychromasia Cancelled, Hypochromasia Cancelled, Poikilocytosis Cancelled, Basophilic Stippling Cancelled, Anisocytosis Cancelled, Microcytosis Cancelled, Macrocytosis Cancelled, Spherocytes Cancelled, Sickle Cells Cancelled, Target Cells Cancelled, Tear Drop Cells Cancelled, Ovalocytes Cancelled, Stomatocytes Cancelled, Keita-Brownell Bodies Cancelled, [place] Cells Cancelled, Bite Cells Cancelled, Crenated Cell Cancelled, Acanthocytes (Spur) Cancelled, Rouleaux Cancelled, Schistocytes Cancelled 01/29/21 14:05: PT Cancelled, INR Cancelled, APTT Cancelled 01/29/21 14:05: Sodium 131 L, Potassium 6.2 H*, Chloride 100, Carbon Dioxide 17.0 L, Anion Gap 14, BUN 68 H, Creatinine 1.94 H, Estim Creat Clear Calc 37.22, Est GFR (MDRD) Af Amer 45 L, Est GFR (MDRD) Non-Af 37 L, BUN/Creatinine Ratio 35.1 H, Glucose 145 H, Calcium 9.2, Total Creatine Kinase 45, TSH 6.06 H 01/29/21 14:05: Acetone Level Cancelled 01/29/21 14:05: Lactic Acid 7.9 H* 01/29/21 14:05: Ethyl Alcohol Cancelled 01/29/21 14:11: POC Glucose 156 H 01/29/21 15:02: Ammonia 582.0 H 01/29/21 15:02: PT 22.2 H, INR 2.0, APTT 34.8 01/29/21 15:02: WBC 44.6 H*, RBC 4.28 L, Hgb 11.9 L, Hct 39.1 L, MCV 91.4, MCH 27.8, MCHC 30.4 L, RDW Std Deviation 71.7 H, RDW Coeff of Tony 22.7 H, Plt Count 123 L, MPV 12.3 H, Immature Gran % (Auto) 2.800 H, Neut % (Auto) 89.0 H, Lymph % (Auto) 2.2 L, [place] % (Auto) 5.7, Eos % (Auto) 0.2, Baso % (Auto) 0.1, Absolute Neuts (auto) 39.7 H, Absolute Lymphs (auto) 1.00, Nucleated RBC % 0.5, Differential Comment SEE COMMENTS, Diff Path Review May foll, Toxic Granulation RARE, Platelet Estimate SLT DEC, RBC Morphology N CHROM, Anisocytosis RARE, Macrocytosis RARE 01/29/21 15:02: Ethyl Alcohol 7.0, Acetone Level NEGATIVE 01/29/21 16:04: POC Glucose 238 H 01/29/21 18:18: Fluid Glucose 4 L*, Fluid Total Protein 0.9, Fluid LDH TNP 01/29/21 18:18: Fluid Source PLEURAL FLUID, Fluid Color YELLOW, Fluid Appearance CLOUDY, Fluid WBC 5.567, Fluid RBC 0.006, Fluid Tot Cell Count 5.601, Fld Polynuclear WBCs # 3.050, Fld Polynuclear WBCs % 54.8, Fluid Mononuclear WBCs 2.517, Fld Mononuclear WBCs % 45.2, Fluid Neutrophils 86, Fluid Lymphocytes 1, Fluid Monocytes 13, Fl Pathologist Comment May follow, Fluid Comment 2 SEE COMMENT 01/29/21 21:55: Lactic Acid 7.1 H* 01/30/21 04:15: Sodium Cancelled, Potassium Cancelled, Chloride Cancelled, Carbon Dioxide Cancelled, Anion Gap Cancelled, BUN Cancelled, Creatinine Cancelled, Estim Creat Clear Calc Cancelled, Est GFR (MDRD) Af Amer Cancelled, Est GFR (MDRD) Non-Af Cancelled, BUN/Creatinine Ratio Cancelled, Glucose Cancelled, Calcium Cancelled, Magnesium Cancelled, Total Bilirubin Cancelled, AST Cancelled, ALT Cancelled, Alkaline Phosphatase Cancelled, Lactate Dehydrogenase Cancelled, Total Protein Cancelled, Albumin Cancelled, Globulin Cancelled, Albumin/Globulin Ratio Cancelled 01/30/21 04:15: WBC 35.2 H*, RBC 4.24 L, Hgb 11.8 L, Hct 37.6 L, MCV 88.7, MCH 27.8, MCHC 31.4 L, RDW Std Deviation 66.3 H, RDW Coeff of Tony 22.6 H, Plt Count 123 L, MPV 12.4 H, Immature Gran % (Auto) 0.800, Neut % (Auto) 89.3 H, Lymph % (Auto) 3.9 L, [place] % (Auto) 5.4, Eos % (Auto) 0.2, Baso % (Auto) 0.4, Absolute Neuts (auto) 31.5 H, Absolute Lymphs (auto) 1.37, Nucleated RBC % 0.7, Differential Comment SCANNED, Diff Path Review September, Polychromasia RARE, Anisocytosis 1+, Macrocytosis 1+ 01/30/21 04:15: Sodium 134 L, Potassium 5.3 H, Chloride 104, Carbon Dioxide 17.0 L, Anion Gap 13, BUN 63 H, Creatinine 1.96 H, Estim Creat Clear Calc 36.84, Est GFR (MDRD) Af Amer 44 L, Est GFR (MDRD) Non-Af 37 L, BUN/Creatinine Ratio 32.1 H, Glucose 108 H, Calcium 7.9 L, Phosphorus 4.5, Magnesium 2.1, Total Bilirubin 1.00, AST 214 H, ALT 51, Alkaline Phosphatase 470 H, Lactate Dehydrogenase 362 H, Total Protein 6.3 L, Albumin 1.2 L, Globulin 5.1 H, Albumin/Globulin Ratio 0.2 L 01/30/21 04:15: Ammonia 115.0 H Micro: Microbiology 01/29/21 18:18 Fluid - Pleural (Lung) Gram Stain - Preliminary 01/29/21 14:10 Interface Orders SARS-CoV-2 Antigen (Rapid) - Final ABG Data ABG results: ABG 01/29/21 01/29/21 01/30/21 14:17 19:08 05:38 Specimen Type ART ART ART Sample Site R Radial L Radial Art Line pH 7.19 L* 7.08 L* 7.31 L Bicarbonate Actual 13.7 L 15.7 L 13.7 L Total CO2 15 17 15 Base Excess -15 L -14 L -13 L O2 Saturation 94 L 59 L 96 O2 % 100 40 ABG pCO2 35.9 52.9 H 26.9 L ABG pO2 85 42 L 90 Gabriele Test Positive Positive Respiration Rate 12 12 O2 Delivery Device AeroMask Adult Vent Liter Flow 4.0 Vent Mode AC AC Tidal Volume 450 450 POC PEEP 10 10 Crit Call To/Read Back Yes Yes Blood Gas Notified Whom KARMA Radiography Diagnostic Testing: Radiology Impression Brain CT 01/29/21 14:12 IMPRESSION: Chronic involutional changes of the brain. Electronically Signed: Petey Jimenez MD at 15:01 EDT Tel , Service support , Chest X-Ray 01/29/21 14:47 IMPRESSION: Complete opacification the right hemithorax worrisome for a large right pleural effusion. Correlation with CT of the chest with contrast would be useful. Electronically Signed: Petey Jimenez MD at 14:59 EDT Tel , Service support , Chest/Abdomen/Pelvis CT 01/29/21 15:24 IMPRESSION: 1. Large right pleural effusion with near total collapse of the right lung. 2. Suspect large right hilar mass with probable mediastinal invasion worrisome for bronchogenic carcinoma and correlation with CT the chest with contrast after thoracentesis is recommended. 3. Some left lung subsegmental atelectasis or pneumonitis. 4. 11 cm sebaceous cyst within the superior right flank soft tissues. Electronically Signed: Petey Jimenez MD at 16:24 EDT Tel , Service support , Chest X-Ray 01/29/21 16:25 IMPRESSION: 1. Interval placement of endotracheal tube with the tip above the simona. 2. Interval placement of nasogastric tube with tip below the diaphragm. 3. No change in a large right pleural effusion with near total collapse of the right lung. Electronically Signed: Petey Jimenez MD at 16:51 EDT Tel , Service support , Chest X-Ray 01/29/21 18:10 IMPRESSION: 1. Right jugular central venous catheter not previously seen. 2. The catheter within the right hemithorax. There is a decrease in the right pleural effusion. There is collapse of the visualized right lung apex with approximate 10% pneumothorax. 3. Resolution of the left mediastinal shift seen on the prior study. Electronically Signed: Jhonathan Diaz DO at 18:55 EDT Tel [phone], Service support , Chest X-Ray 01/29/21 18:45 IMPRESSION: 1. Tubes and catheters as described. 2. Progressive decrease in right pleural effusion. There is nonexpansile lungs with approximate 30% pneumothorax. Electronically Signed: Jhonathan Diaz DO at 21:06 EDT Tel [phone], Service support , Chest X-Ray 01/29/21 19:35 IMPRESSION: Start numbering large-bore right chest tube with reduction in pneumothorax. The remainder of the findings is stable. Electronically Signed: Jhonathan Diaz DO at 21:37 EDT Tel [phone], Service support , Chest X-Ray 01/30/21 07:56 IMPRESSION: The tip of the right chest tube is in the upper midportion of the right upper lobe. Tiny residual right apical pneumothorax. Electronically Signed: Jc Rojo MD at 8:42 EDT , Service support , Rhythm Strip Rhythm Strip: Sinus Tach Rate: 157 Ectopy: None Physical Exam Narrative General exam. Looks very unwell, poorly kempt, sedated, pale, cold to touch HEENT. Oral mucosa dry Neck. Neck is supple Heart. First and second heart sounds heard no murmurs. Patient is very tachycardic with heart rate in the 140s. Lungs. Markedly diminished breath sounds in the right hemithorax. Abdomen. Liver is markedly enlarged to 10 to 12 cm below the costal margin, firm to hard. Extremities. Bilateral pitting pedal edema 2+. Skin. There is mottling of the skin. Skin of the extremities is cool. EXCEL ANALYST. Patient is stuporous and obtunded. Assessment & Plan Assessment/Plan (1) Severe sepsis with septic shock: (2) Acute respiratory failure: (3) Acute kidney injury: (4) Decompensated hepatic cirrhosis: (5) Acute encephalopathy: (6) Alcohol abuse: (7) Metabolic acidosis: (8) Hyperkalemia: PLAN: 1. Acute hypoxic respiratory failure secondary to acute right empyema/pneumothorax Rapid COVID-19 antigen was negative on admission Patient is intubated for airway protection, sedated, on mechanical ventilator Sterilisation Technician following 2. Septic shock secondary to #3, on 3 pressors WBC is worse at 35.2 Trial of 1 L normal saline bolus to compensate for losses from chest tube 3. Acute empyema, status post chest tube placement Cultures growing gram-positive cocci and rods Patient is on empiric vancomycin and Zosyn 4. Narrow complex tachycardia, likely secondary to #1 and 2 Consult cardiology 5. Pneumothorax, small, reported as received on chest x-ray 01/30/21 Status post chest tube placement 6. Acute hepatic encephalopathy with decompensated alcoholic liver cirrhosis, present on admission Liver functions are slightly worse, ammonia is improved 7. Acute kidney injury, likely prerenal from #2 Creatinine is worse at 1.96 We will trend 8. Lactic acidosis, secondary to #1 Charges/Coding Visit Charges Inpatient E&M: 69315 Subs Hosp L3
[2021-01-30] MEDS: Chlorhexidine 480 ML 15 ML PO (09:10)
[2021-01-30] MEDS: Hydrocortisone Sod Succinate 100 MG/2 ML Vial IV ×2 (09:11→13:07)
--- NOTE | 2021-01-30 09:16 | PN_ITS ---
Progress Note Patient seen and examined during AM rounds. He is hospital day 2 after been admitted in extremis yesterday. Patient was found down and has been responsive only to noxious stimuli since his admission. I placed a large bore (28 [place]) thoracostomy tube on the right to replace a smaller caliber tube for a right- sided empyema. Total drainage has been 5 L. On exam the patient still has a continuous air leak in the waterseal chamber and suction is at -30 cm of water. All connections are tested and the leak does appear to be coming from the pa tient. Drainage to the collection device continues to be milky in character. Chest x-ray was reviewed from this morning. There is improvement in lung expansion and reduction in the pleural space fluid. Tube remains in a good position with the side-port well within the chest cavity. Recommend continuing chest tube to suction at -30 cmH2O today. Left femoral arterial line, also placed yesterday, is examined and appears to be in a stable position. There is a small collection of blood right around the catheter, but the tissues around the catheter remained soft. Per nursing, the catheter continues to function well.
[2021-01-30] MEDS: CHLORHEXIDINE GLUC 2% CLOTH 1 EACH TOWELETTE TOPICAL (09:41)
--- NOTE | 2021-01-30 09:50 | EKG12_ITS ---
Test Reason : Blood Pressure : / mmHG Vent. Rate : 167 BPM Atrial Rate : 167 BPM P-R Int : 116 ms QRS Dur : 124 ms QT Int : 276 ms P-R-T Axes : 085 069 003 degrees QTc Int : 460 ms Atrial Flutter with 2:1 block Right bundle branch block T wave abnormality, consider inferolateral ischemia Abnormal ECG When compared with ECG of 29-JAN-2021 18:41, MANUAL COMPARISON REQUIRED, DATA IS UNCONFIRMED Confirmed by JONATHON JOHN, SUSAN ([id number]), script editor RAKEL RAMOS ([id number]) on 02/04/2021 10:48:30 AM Referred By: Confirmed By:SUSAN HOLT MD
--- NOTE | 2021-01-30 09:50 | EKG12_ITS ---
Test Reason : RAPID HR Blood Pressure : / mmHG Vent. Rate : 150 BPM Atrial Rate : 150 BPM P-R Int : 114 ms QRS Dur : 142 ms QT Int : 328 ms P-R-T Axes : 108 050 -65 degrees QTc Int : 518 ms Atrial flutter with 2 to 1 block Right bundle branch block T wave abnormality, consider inferolateral ischemia Abnormal ECG When compared with ECG of 24-SEP-1999 07:27, Sinus rhythm has replaced Ectopic atrial rhythm Right bundle branch block is now Present Confirmed by JONATHON JOHN, SUSAN ([id number]), copy editor RAKEL RAMOS ([id number]) on 02/02/2021 10:12:28 AM Referred By: KARMA Confirmed By:SUSAN HOLT MD
[2021-01-30] MEDS: Lactated Ringers 1,000 ML 999 ML IV (10:17)
[2021-01-30 10:55] LABS: Mucous, Urine 0 SEEN /hpf (<or=2+)
[2021-01-30 10:57] LABS: Color, Urine Yellow (Yellow); Glucose, Dipstick Normal (Normal); Ketone-Dipstick 5 mg/dl (Negative); Leukocyte Esterase-Dipstick 25 /ul (Negative); Nitrite-Dipstick Positive (Negative); Occult Blood-Urine 250 /ul (Negative); Protein-Dipstick 30 mg/dl (Negative); Specific Gravity, Urine 1.015 (1.002-1.030); Urine Clarity Sl. Cloudy (Clear); Urine Urobilinogen 1 mg/dl (Normal)
[2021-01-30 10:58] LABS: Urine Bilirubin Dipstick 1 mg/dL (Negative)
[2021-01-30 11:07] LABS: Bacteria 1+ /hpf (None Seen); Hyaline Cast 5-10 SEEN /lpf (0-5); Red Blood Cells-Urine 25-50 SEEN /hpf (0-5); Squamous Epithelial Cells - UA 0-5 SEEN /hpf (0-5); White Blood Cells 0-5 SEEN /hpf (0-5)
[2021-01-30 11:18] LABS: Amphetamine Urine VISTA NEGATIVE (<1000 ng/mL); Barbiturate Urine VISTA NEGATIVE (< 200 ng/mL); Benzodiazepine Urine VISTA NEGATIVE (< 200 ng/mL); Cocaine Urine VISTA NEGATIVE (< 300 ng/mL); Ecstacy Urine VISTA NEGATIVE (< 500 ng/mL); Methadone Urine VISTA NEGATIVE (< 300 ng/mL); PCP Urine VISTA NEGATIVE (< 25 ng/mL); THC Urine VISTA NEGATIVE (< 50 ng/mL); Vista UDS pH Range 5
--- NOTE | 2021-01-30 11:34 | CASEMGMT ---
SW participated in ICU rounds this morning. SW spoke w/RN working w/pt, she spoke w/son and encouraged him to come in to see pt. SW called son Demian to offer support, encouraged him to come in. He states will come in, as will daughter Lynn. There is a third son Lawrence who has not seen pt in 20 years, Demian is going to call him. Demian also asked if his mother, Veronique, pt's exwife can come see pt. He states they have a good relationship. SW checked w/RN, she states that yes, she can come in, though we may limit visiting to two people at a time. SW let son know. He anticipates coming this afternoon, though states that he and pt's daughter Lynn will likely not be here at the same time. SUDHAKAR will continue to follow and remains available for support to family. NOAM Guerrero
--- NOTE | 2021-01-30 11:48 | ECHOD_ITS ---
Reason For Study: Arrhythmia Procedure This was a 2D Doppler, Color Flow transthoracic echocardiogram. Very techincally difficult study due to patients condition. Patients HR is elevated, patient scanned supine and on Vent. Best images taken from Subcostal region. Exam performed portable in ICU/CCU. Left Ventricle Normal LV size. The estimated ejection fraction is 45 %. No regional wall motion abnormalities noted. Right Ventricle Moderately dilated right ventricle. Mild global right ventricular systolic dysfunction. Atria The left atrium is moderately enlarged. The right atrium is mildly enlarged. Mitral Valve Normal mitral valve. Great Vessels Normal aortic root. Pericardium/Pleural No pericardial effusion. ECHO/Echo Complete Interpretation Summary Normal LV size. The estimated ejection fraction is 45 %. The study was technically limited. The study was technically difficult. Limited views were obtained. Ordering Physician: Evon Mills Referring Physician: No PCP noted Performed By: Justice Osei RCS
[2021-01-30] MEDS: Vital AF 1.2 Cal Liquid 1,000 ML 10 ML GT (12:46)
[2021-01-30] MEDS: Heparin Injection (Vial) 5,000 UNIT/ML VIAL 5000 UNIT SC (12:47)
[2021-01-30 13:36] LABS: Base Excess -17 mmol/L (-2 to +2); Blood Gas Specimen Type ART; FI02 40; Mode AC; O2 Delivery Device Adult Vent; PEEP 5; PO2 133 mmHG (75-100); RR 12; SITE Art Line; SO2 99 % (95-99); Total Carbon Dioxide 11 mmol/L; Vt 450; pCO2 22.3 mmHg (35-45); pH 7.26 (7.35-7.45)
[2021-01-30 14:28] LABS: Pathologist Review Reviewed
[2021-01-30 14:29] LABS: Pathologist Review Reviewed
--- NOTE | 2021-01-30 14:31 | NURSING ---
Demian, son at bedside visiting patient, update on patient condition and all questions answered.
[2021-01-30 14:44] LABS: Pathologist Comment/Body Fluid Reviewed
--- NOTE | 2021-01-30 15:21 | CON.PCM.ID_ITS ---
Assessment & Plan Assessment/Plan (1) Empyema of lung: (2) Severe sepsis with septic shock: PLAN: Due to R sided empyema. Chest tube in place, pleural fluid cx with GPC and GNR. Agree with vanc/zosyn. Covid neg. Wbc better today. Will follow, thank you (3) Alcohol abuse: (4) Acute kidney injury: HPI Consult Data Date of Consult: 01/30/21 HPI Narrative HPI Narrative: LUCINA AGUIRRE, is a 65 M with h/o etoh abuse, TBI, presented yesterday after being found down at home. Intubated, covid neg, chest tube placed, started on vanc/zosyn, levophed. Pt unable to provide history or ROS. [facility] Medical History Alcohol abuse Traumatic brain injury Home Medications Unobtainable 01/29/21 [History Last Taken Unknown] Allergy/AdvReac Type Severity Reaction Status Date / Time Unable to Assess Allergy Verified 01/29/21 14:16 Social History Smoking Status: Current every day smoker tobacco type: cigarettes Physical Exam Const Constitutional Narrative: ill appearing HEENT head/scalp atraumatic Eyes PERRL and EOMs intact bilaterally Neck supple and No nodes Resp Auscultation: rhonchi and diminished lung sounds Cardio Rate: tachycardic GI normal to inspection, nondistended, normoactive bowel sounds Extremity General Extremity: edema Skin no rashes or lesions noted Lab / Micro Data Result Diagrams: 01/30/21 04:15 01/30/21 04:15 Labs: Laboratory Results - last 24 hr 01/29/21 15:02: Ammonia 582.0 H 01/29/21 15:02: PT 22.2 H, INR 2.0, APTT 34.8 01/29/21 15:02: WBC 44.6 H*, RBC 4.28 L, Hgb 11.9 L, Hct 39.1 L, MCV 91.4, MCH 27.8, MCHC 30.4 L, RDW Std Deviation 71.7 H, RDW Coeff of Tony 22.7 H, Plt Count 123 L, MPV 12.3 H, Immature Gran % (Auto) 2.800 H, Neut % (Auto) 89.0 H, Lymph % (Auto) 2.2 L, [place] % (Auto) 5.7, Eos % (Auto) 0.2, Baso % (Auto) 0.1, Absolute Neuts (auto) 39.7 H, Absolute Lymphs (auto) 1.00, Nucleated RBC % 0.5, Differential Comment SEE COMMENTS, Diff Path Review Reviewed, Toxic Granulation RARE, Platelet Estimate SLT DEC, RBC Morphology N CHROM, Anisocytosis RARE, Macrocytosis RARE 01/29/21 15:02: Ethyl Alcohol 7.0, Acetone Level NEGATIVE 01/29/21 16:04: POC Glucose 238 H 01/29/21 18:18: Fluid Glucose 4 L*, Fluid Total Protein 0.9, Fluid LDH TNP 01/29/21 18:18: Fluid Source PLEURAL FLUID, Fluid Color YELLOW, Fluid Appearance CLOUDY, Fluid WBC 5.567, Fluid RBC 0.006, Fluid Tot Cell Count 5.601, Fld Polynuclear WBCs # 3.050, Fld Polynuclear WBCs % 54.8, Fluid Mononuclear WBCs 2.517, Fld Mononuclear WBCs % 45.2, Fluid Neutrophils 86, Fluid Lymphocytes 1, Fluid Monocytes 13, Fl Pathologist Comment Reviewed, Fluid Comment 2 SEE COMMENT 01/29/21 21:55: Lactic Acid 7.1 H* 01/30/21 04:15: Sodium Cancelled, Potassium Cancelled, Chloride Cancelled, Carbon Dioxide Cancelled, Anion Gap Cancelled, BUN Cancelled, Creatinine Cancelled, Estim Creat Clear Calc Cancelled, Est GFR (MDRD) Af Amer Cancelled, Est GFR (MDRD) Non-Af Cancelled, BUN/Creatinine Ratio Cancelled, Glucose Cancelled, Calcium Cancelled, Magnesium Cancelled, Total Bilirubin Cancelled, AST Cancelled, ALT Cancelled, Alkaline Phosphatase Cancelled, Lactate Dehydrog enase Cancelled, Total Protein Cancelled, Albumin Cancelled, Globulin Cancelled, Albumin/Globulin Ratio Cancelled 01/30/21 04:15: WBC 35.2 H*, RBC 4.24 L, Hgb 11.8 L, Hct 37.6 L, MCV 88.7, MCH 27.8, MCHC 31.4 L, RDW Std Deviation 66.3 H, RDW Coeff of Tony 22.6 H, Plt Count 123 L, MPV 12.4 H, Immature Gran % (Auto) 0.800, Neut % (Auto) 89.3 H, Lymph % (Auto) 3.9 L, [place] % (Auto) 5.4, Eos % (Auto) 0.2, Baso % (Auto) 0.4, Absolute Neuts (auto) 31.5 H, Absolute Lymphs (auto) 1.37, Nucleated RBC % 0.7, Differential Comment SCANNED, Diff Path Review Reviewed, Polychromasia RARE, Anisocytosis 1+, Macrocytosis 1+ 01/30/21 04:15: Sodium 134 L, Potassium 5.3 H, Chloride 104, Carbon Dioxide 17.0 L, Anion Gap 13, BUN 63 H, Creatinine 1.96 H, Estim Creat Clear Calc 36.84, Est GFR (MDRD) Af Amer 44 L, Est GFR (MDRD) Non-Af 37 L, BUN/Creatinine Ratio 32.1 H , Glucose 108 H, Calcium 7.9 L, Phosphorus 4.5, Magnesium 2.1, Total Bilirubin 1.00, AST 214 H, ALT 51, Alkaline Phosphatase 470 H, Lactate Dehydrogenase 362 H , Total Protein 6.3 L, Albumin 1.2 L, Globulin 5.1 H, Albumin/Globulin Ratio 0.2 L 01/30/21 04:15: Ammonia 115.0 H 01/30/21 10:45: Urine Opiates Screen NEGATIVE, Urine Methadone Screen NEGATIVE, Ur Barbiturates Screen NEGATIVE, Ur Phencyclidine Scrn NEGATIVE, Ur Amphetamines Screen NEGATIVE, U Methamphetamin-MDMA NEGATIVE, U Benzodiazepines Scrn NEGATIVE, Urine Cocaine Screen NEGATIVE, U Cannabinoids Screen NEGATIVE, Ur Drug Screen Comment 01/30/21 10:45: Urine Color Yellow, Urine Clarity Sl. Cloudy, Urine pH 5.0, Ur Specific [place] 1.015, Urine Protein 30 H, Urine Glucose (UA) Normal, Urine Ketones 5 H, Urine Occult Blood 250 H, Urine Nitrite Positive H, Urine Bilirubin 1 H, Urine Urobilinogen 1 H, Ur Leukocyte Esterase 25 H, Urine RBC 25-50 SEEN, Urine WBC 0-5 SEEN, Ur Squamous Epith Cells 0-5 SEEN, Urine Bacteria 1+, Hyaline Casts 5-10 SEEN, Urine Mucus 0 SEEN Micro: Microbiology 01/29/21 18:18 Fluid - Pleural (Lung) Gram Stain - Final 01/29/21 18:18 Fluid - Pleural (Lung) Body Fluid Culture - Preliminary No growth-Final to follow 01/29/21 14:10 Interface Orders SARS-CoV-2 Antigen (Rapid) - Final ABG Data ABG results: ABG 01/29/21 01/30/21 01/30/21 19:08 05:38 13:29 Specimen Type ART ART ART Sample Site L Radial Art Line Art Line pH 7.08 L* 7.31 L 7.26 L Bicarbonate Actual 15.7 L 13.7 L 10.0 L Total CO2 17 15 11 Base Excess -14 L -13 L -17 L O2 Saturation 59 L 96 99 O2 % 100 40 40 ABG pCO2 52.9 H 26.9 L 22.3 L ABG pO2 42 L 90 133 H Gabriele Test Positive N/A Respiration Rate 12 12 12 O2 Delivery Device AeroMask Adult Vent Adult Vent Vent Mode AC AC AC Tidal Volume 450 450 450 POC PEEP 10 10 5 Crit Call To/Read Back Yes Blood Gas Notified Whom KARMA Rhythm Strip Rhythm Strip: Sinus Tach Rate: 157 Ectopy: None Radiology Impression Chest/Abdomen/Pelvis CT 01/29/21 15:24 IMPRESSION: 1. Large right pleural effusion with near total collapse of the right lung. 2. Suspect large right hilar mass with probable mediastinal invasion worrisome for bronchogenic carcinoma and correlation with CT the chest with contrast after thoracentesis is recommended. 3. Some left lung subsegmental atelectasis or pneumonitis. 4. 11 cm sebaceous cyst within the superior right flank soft tissues. Electronically Signed: Petey Jimenez MD at 16:24 EDT Tel , Service support , Chest X-Ray 01/29/21 16:25 IMPRESSION: 1. Interval placement of endotracheal tube with the tip above the simona. 2. Interval placement of nasogastric tube with tip below the diaphragm. 3. No change in a large right pleural effusion with near total collapse of the right lung. Electronically Signed: Petey Jimenez MD at 16:51 EDT Tel , Service support , Chest X-Ray 01/29/21 18:10 IMPRESSION: 1. Right jugular central venous catheter not previously seen. 2. The catheter within the right hemithorax. There is a decrease in the right pleural effusion. There is collapse of the visualized right lung apex with approximate 10% pneumothorax. 3. Resolution of the left mediastinal shift seen on the prior study. Electronically Signed: Jhonathan Diaz DO at 18:55 EDT Tel [phone], Service support , Chest X-Ray 01/29/21 18:45 IMPRESSION: 1. Tubes and catheters as described. 2. Progressive decrease in right pleural effusion. There is nonexpansile lungs with approximate 30% pneumothorax. Electronically Signed: Jhonathan Diaz DO at 21:06 EDT Tel [phone], Service support , Chest X-Ray 01/29/21 19:35 IMPRESSION: Start numbering large-bore right chest tube with reduction in pneumothorax. The remainder of the findings is stable. Electronically Signed: Jhonathan Diaz DO at 21:37 EDT Tel [phone], Service support , Chest X-Ray 01/30/21 07:56 IMPRESSION: The tip of the right chest tube is in the upper midportion of the right upper lobe. Tiny residual right apical pneumothorax. Electronically Signed: Jc Rojo MD at 8:42 EDT , Service support ,
--- NOTE | 2021-01-30 15:45 | NURSING ---
after lengthy in depth conversation with patient's son, Demian, wishes are for patient to remain full code at this time.
[2021-01-30 16:39] LABS: Troponin-I HS 397 pg/mL (3.0-78.0)
--- NOTE | 2021-01-30 16:48 | CON.PCM.CA_ITS ---
Documented by User: GUS Goldstein 01/30/21 17:25 Assessment & Plan Assessment/Plan (1) Severe sepsis with septic shock: (2) Pleural effusion on right: (3) Empyema of lung: (4) NSTEMI (non-ST elevated myocardial infarction): (5) Atrial fibrillation and flutter: PLAN: * Initial troponin is elevated, this could be related to demand ischemia based on his pneumonia and tachycardia * at this time unable to start lopressor d/t low BP, will monitor and add if possible * will start on ASA * can not start statin d/t his elevated liver enzymes * can not start on JUAN MIGUEL d/t LIDIA * EKG appears to be atrial/fib flutter with RVR, will change heparin to IV * will start on IV amiodarone HPI Consult Data Date of Consult: 01/30/21 HPI Narrative HPI Narrative: LUCINA AGUIRRE, is a 65 M who presented with [facility] via EMS for altered LOC. His son noted to be unresponsive and son called EMS. He was intubated and admitted for Right lung pneumonia, severe sepsis with septic shock, LIDIA, Acute encephalopathy, metabolic acidosis. Cardiology was consulted for his tachycardia. Subjective information was obtained through chart and talking with physicain. [facility] Medical History (Updated 01/30/21 @ 17:09 by GUS Goldstein) Alcohol abuse NSTEMI (non-ST elevated myocardial infarction) Traumatic brain injury Home Medications Unobtainable 01/29/21 [History Last Taken Unknown] Allergy/AdvReac Type Severity Reaction Status Date / Time Unable to Assess Allergy Verified 01/29/21 14:16 Social History Smoking Status: Current every day smoker tobacco type: cigarettes ROS Review of Systems ROS Unobtainable: due to endotracheal tube Physical Exam Narrative Cardiac exam is deferred as pt is on ventilator. Discussed pt with hospitalist Charges/Coding Visit Charges Office Visits / Consults: 83814 IP Consult L4 Objective Data Vital Signs: Vital Signs Temp Pulse Resp BP Pulse Ox 99.1 F 268 H 32 H 90/42 L 100 01/30/21 13:00 01/30/21 14:59 01/30/21 14:00 01/30/21 16:16 01/30/21 14:00 Oxygen Flow Rate (L/min) 8 Oxygen Delivery Method Mechanical Ventilator Weight: 181 lb Body Mass Index (BMI) 27.3 Intake & Output: Intake and Output for Last 24 Hours 01/28/21 01/29/21 01/30/21 23:59 23:59 23:59 Intake Total 8051.90 / 8056.90 3552.80 / 3552.80 Output Total 1550 / 1640 520 / 520 Balance 6501.90 / 6416.90 3032.80 / 3032.80 Lab / Micro Data Result Diagrams: 01/30/21 04:15 01/30/21 04:15 Labs: Laboratory Results - last 24 hr 01/29/21 15:02: Diff Path Review Reviewed 01/29/21 18:18: Fluid Glucose 4 L*, Fluid Total Protein 0.9, Fluid LDH TNP 01/29/21 18:18: Fluid Source PLEURAL FLUID, Fluid Color YELLOW, Fluid Appearance CLOUDY, Fluid WBC 5.567, Fluid RBC 0.006, Fluid Tot Cell Count 5.601, Fld Polynuclear WBCs # 3.050, Fld Polynuclear WBCs % 54.8, Fluid Mononuclear WBCs 2.517, Fld Mononuclear WBCs % 45.2, Fluid Neutrophils 86, Fluid Lymphocytes 1, Fluid Monocytes 13, Fl Pathologist Comment Reviewed, Fluid Comment 2 SEE COMMENT 01/29/21 21:55: Lactic Acid 7.1 H* 01/30/21 04:15: Sodium Cancelled, Potassium Cancelled, Chloride Cancelled, Carbon Dioxide Cancelled, Anion Gap Cancelled, BUN Cancelled, Creatinine Cancelled, Estim Creat Clear Calc Cancelled, Est GFR (MDRD) Af Amer Cancelled, Est GFR (MDRD) Non-Af Cancelled, BUN/Creatinine Ratio Cancelled, Glucose Cancelled, Calcium Cancelled, Magnesium Cancelled, Total Bilirubin Cancelled, AST Cancelled, ALT Cancelled, Alkaline Phosphatase Cancelled, Lactate Dehydrogenase Cancelled, Total Protein Cancelled, Albumin Cancelled, Globulin Cancelled, Albumin/Globulin Ratio Cancelled 01/30/21 04:15: WBC 35.2 H*, RBC 4.24 L, Hgb 11.8 L, Hct 37.6 L, MCV 88.7, MCH 27.8, MCHC 31.4 L, RDW Std Deviation 66.3 H, RDW Coeff of Tony 22.6 H, Plt Count 123 L, MPV 12.4 H, Immature Gran % (Auto) 0.800, Neut % (Auto) 89.3 H, Lymph % (Auto) 3.9 L, [place] % (Auto) 5.4, Eos % (Auto) 0.2, Baso % (Auto) 0.4, Absolute Neuts (auto) 31.5 H, Absolute Lymphs (auto) 1.37, Nucleated RBC % 0.7, Differential Comment SCANNED, Diff Path Review Reviewed, Polychromasia RARE, Anisocytosis 1+, Macrocytosis 1+ 01/30/21 04:15: Sodium 134 L, Potassium 5.3 H, Chloride 104, Carbon Dioxide 17.0 L, Anion Gap 13, BUN 63 H, Creatinine 1.96 H, Estim Creat Clear Calc 36.84, Est GFR (MDRD) Af Amer 44 L, Est GFR (MDRD) Non-Af 37 L, BUN/Creatinine Ratio 32.1 H , Glucose 108 H, Calcium 7.9 L, Phosphorus 4.5, Magnesium 2.1, Total Bilirubin 1.00, AST 214 H, ALT 51, Alkaline Phosphatase 470 H, Lactate Dehydrogenase 362 H , Total Protein 6.3 L, Albumin 1.2 L, Globulin 5.1 H, Albumin/Globulin Ratio 0.2 L 01/30/21 04:15: Ammonia 115.0 H 01/30/21 10:45: Urine Opiates Screen NEGATIVE, Urine Methadone Screen NEGATIVE, Ur Barbiturates Screen NEGATIVE, Ur Phencyclidine Scrn NEGATIVE, Ur Amphetamines Screen NEGATIVE, U Methamphetamin-MDMA NEGATIVE, U Benzodiazepines Scrn NEGATIVE, Urine Cocaine Screen NEGATIVE, U Cannabinoids Screen NEGATIVE, Ur Drug Screen Comment 01/30/21 10:45: Urine Color Yellow, Urine Clarity Sl. Cloudy, Urine pH 5.0, Ur Specific [place] 1.015, Urine Protein 30 H, Urine Glucose (UA) Normal, Urine Ketones 5 H, Urine Occult Blood 250 H, Urine Nitrite Positive H, Urine Bilirubin 1 H, Urine Urobilinogen 1 H, Ur Leukocyte Esterase 25 H, Urine RBC 25-50 SEEN, Urine WBC 0-5 SEEN, Ur Squamous Epith Cells 0-5 SEEN, Urine Bacteria 1+, Hyaline Casts 5-10 SEEN, Urine Mucus 0 SEEN 01/30/21 16:00: Troponin I High Sens 397 H* Micro: Microbiology 01/30/21 02:10 Sputum, Induced/[place]uk[place] Gram Stain - Final 01/29/21 18:18 Fluid - Pleural (Lung) Gram Stain - Final 01/29/21 18:18 Fluid - Pleural (Lung) Body Fluid Culture - Preliminary No growth-Final to follow 01/29/21 14:10 Interface Orders SARS-CoV-2 Antigen (Rapid) - Final ABG Data ABG results: ABG 01/29/21 01/30/21 01/30/21 19:08 05:38 13:29 Specimen Type ART ART ART Sample Site L Radial Art Line Art Line pH 7.08 L* 7.31 L 7.26 L Bicarbonate Actual 15.7 L 13.7 L 10.0 L Total CO2 17 15 11 Base Excess -14 L -13 L -17 L O2 Saturation 59 L 96 99 O2 % 100 40 40 ABG pCO2 52.9 H 26.9 L 22.3 L ABG pO2 42 L 90 133 H [place] Test Positive N/A Respiration Rate 12 12 12 O2 Delivery Device AeroMask Adult Vent Adult Vent Vent Mode AC AC AC Tidal Volume 450 450 450 POC PEEP 10 10 5 Crit Call To/Read Back Yes Blood Gas Notified Whom KARMA Rhythm Strip Rhythm Strip: Sinus Tach Rate: 157 Ectopy: None Cardiology Labs/Tests 01/29/21 19:08: pH 7.08 L*, Bicarbonate Actual 15.7 L, Base Excess -14 L, O2 Saturation 59 L, ABG pCO2 52.9 H, ABG pO2 42 L, [place] Test Positive 01/29/21 21:55: Lactic Acid 7.1 H* 01/30/21 04:15: Sodium Cancelled, Potassium Cancelled, Chloride Cancelled, Carbon Dioxide Cancelled, Anion Gap Cancelled, BUN Cancelled, Creatinine Cancelled, Est GFR (MDRD) Af Amer Cancelled, Est GFR (MDRD) Non-Af Cancelled, BUN/Creatinine Ratio Cancelled, Glucose Cancelled, Calcium Cancelled, Magnesium Cancelled, Total Bilirubin Cancelled 01/30/21 04:15: WBC 35.2 H*, RBC 4.24 L, Hgb 11.8 L, Hct 37.6 L, MCV 88.7, MCH 27.8, MCHC 31.4 L, Plt Count 123 L, MPV 12.4 H, Immature Gran % (Auto) 0.800, N eut % (Auto) 89.3 H, Lymph % (Auto) 3.9 L, [place] % (Auto) 5.4, Eos % (Auto) 0.2, Baso % (Auto) 0.4, Absolute Neuts (auto) 31.5 H, Nucleated RBC % 0.7 01/30/21 04:15: Sodium 134 L, Potassium 5.3 H, Chloride 104, Carbon Dioxide 17.0 L, Anion Gap 13, BUN 63 H, Creatinine 1.96 H, Est GFR (MDRD) Af Amer 44 L, Est GFR (MDRD) Non-Af 37 L, BUN/Creatinine Ratio 32.1 H, Glucose 108 H, Calcium 7.9 L, Phosphorus 4.5, Magnesium 2.1, Total Bilirubin 1.00 01/30/21 05:38: pH 7.31 L, Bicarbonate Actual 13.7 L, Base Excess -13 L, O2 Saturation 96, ABG pCO2 26.9 L, ABG pO2 90 01/30/21 10:45: Urine Color Yellow, Urine Clarity Sl. Cloudy, Urine pH 5.0, Ur Specific [place] 1.015, Urine Protein 30 H, Urine Glucose (UA) Normal, Urine Ketones 5 H, Urine Occult Blood 250 H, Urine Nitrite Positive H, Urine Bilirubin 1 H, Urine Urobilinogen 1 H, Ur Leukocyte Esterase 25 H, Urine RBC 25-50 SEEN, Urine WBC 0-5 SEEN 01/30/21 13:29: pH 7.26 L, Bicarbonate Actual 10.0 L, Base Excess -17 L, O2 Saturation 99, ABG pCO2 22.3 L, ABG pO2 133 H, [place] Test N/A Rhythm: Sinus tach EKG: Atrail fib/Flutter, RBBB, HR 153 ECHO: pending Radiography Diagnostic Testing: Radiology Impression Chest X-Ray 01/29/21 16:25 IMPRESSION: 1. Interval placement of endotracheal tube with the tip above the simona. 2. Interval placement of nasogastric tube with tip below the diaphragm. 3. No change in a large right pleural effusion with near total collapse of the right lung. Electronically Signed: Petey Jimenez MD at 16:51 EDT Tel , Service support , Chest X-Ray 01/29/21 18:10 IMPRESSION: 1. Right jugular central venous catheter not previously seen. 2. The catheter within the right hemithorax. There is a decrease in the right pleural effusion. There is collapse of the visualized right lung apex with approximate 10% pneumothorax. 3. Resolution of the left mediastinal shift seen on the prior study. Electronically Signed: Jhonathan Diaz DO at 18:55 EDT Tel [phone], Service support , Chest X-Ray 01/29/21 18:45 IMPRESSION: 1. Tubes and catheters as described. 2. Progressive decrease in right pleural effusion. There is nonexpansile lungs with approximate 30% pneumothorax. Electronically Signed: Jhonathan Diaz DO at 21:06 EDT Tel [phone], Service support , Chest X-Ray 01/29/21 19:35 IMPRESSION: Start numbering large-bore right chest tube with reduction in pneumothorax. The remainder of the findings is stable. Electronically Signed: Jhonathan Diaz DO at 21:37 EDT Tel [phone], Service support , ADDENDUM: 01/30/21 1613 IMPRESSION: 1. Large bore right chest tube with reduction in pneumothorax. 2. The remainder of the findings is stable. Electronically Signed: Jhonathan Diaz DO at 16:06 EDT Tel [phone], Service support , Chest X-Ray 01/30/21 07:56 IMPRESSION: The tip of the right chest tube is in the upper midportion of the right upper lobe. Tiny residual right apical pneumothorax. Electronically Signed: Jc Rojo MD at 8:42 EDT , Service support , Documented by User: Dr. Daisy Thornton MD 01/30/21 17:36 Assessment & Plan Assessment/Plan (1) Severe sepsis with septic shock: (2) Pleural effusion on right: (3) NSTEMI (non-ST elevated myocardial infarction): (4) Atrial fibrillation and flutter: (5) Acute kidney injury: (6) Decompensated hepatic cirrhosis: (7) Alcohol abuse: PLAN: I reviewed the current data of this high risk patient with severe sepsis and septic shock and pleural effusion. With a CT chest showing right upper hilar mass. Also I discussed with the medical team and the nursing staff in ICU. Cardiac recommendation was because of hypotension with tachycardia and on repeat EKG and comparing with prior EKGs clear evidence of atrial flutter patient had decompensated hepatic cirrhosis and a high risk patient so we will start him on amiodarone IV in addition to heparin due to atrial flutter with variable ventricular rate and tachycardia heart rate of around 170 patient has been on multiple inotropic support and not a candidate for beta-blockade at this point. Bedside echocardiogram showed mildly reduced LV systolic function, with ejection fraction in the range of 50-55%, with mild dilatation of the RV and mild RV systolic dysfunction. We added low-dose aspirin to the current treatment and will continue to monitor and follow-up clinically This patient with guarded prognosis. Alcohol abuse with decompensated liver c irrhosis. Not a candidate for oral anticoagulation at this point. HPI Consult Data Date of Consult: 01/30/21 [facility] Medical History (Updated 01/30/21 @ 17:09 by Carla WEBER, PA) Alcohol abuse NSTEMI (non-ST elevated myocardial infarction) Traumatic brain injury Home Medications Unobtainable 01/29/21 [History Last Taken Unknown] Allergy/AdvReac Type Severity Reaction Status Date / Time Unable to Assess Allergy Verified 01/29/21 14:16 Social History Smoking Status: Current every day smoker tobacco type: cigarettes Lab / Micro Data Result Diagrams: 01/30/21 04:15 01/30/21 04:15
--- NOTE | 2021-01-30 16:52 | EKG12_ITS ---
Test Reason : SA Blood Pressure : / mmHG Vent. Rate : 175 BPM Atrial Rate : 175 BPM P-R Int : 000 ms QRS Dur : 140 ms QT Int : 260 ms P-R-T Axes : 000 082 -06 degrees QTc Int : 443 ms Atrial Flutter with 2:1 block Right bundle branch block Septal infarct , age undetermined Abnormal ECG No previous ECGs available Confirmed by JONATHON JOHN, SUSAN ([id number]), international editorial producer RAKEL RAMOS ([id number]) on 02/04/2021 10:48:42 AM Referred By: KARMA Confirmed By:SUSAN HOLT MD
[2021-01-30] MEDS: Amiodarone 360 MG in Dextrose 5% Viaflo Bag 192.8 ML 33.3 MG CONT INF (18:01)
[2021-01-30] MEDS: HEPARIN/D5w 25,000 UNITS 25,000 UNITS/250 ML IV.SOLN. 12 UNITS IV (18:11)
[2021-01-30] MEDS: Aspirin 81 MG TAB.CHEW NG (18:18)
[2021-01-30] MEDS: Polyethylene Glycol 3350 17 GM PACKET PO (18:18)
--- NOTE | 2021-01-30 19:37 | NURSING ---
1845 apneic, asystolic Dr. Fisher present
--- NOTE | 2021-01-30 19:54 | CASEMGMT ---
SOCIAL WORK Code Blue Responded to Code Blue. Patient . Patient's children arrived. Emotional support provided. Megan Bingham, EPIC MANAGER, MUSIC THERAPY SPECIALIST
--- NOTE | 2021-01-30 20:01 | EXP.PCM_ITS ---
Preliminary Cause of Preliminary Cause of Preliminary Cause of : Septic shock secondary to empyema Principle Diagnosis Problem List: Active and Suspected Problems (Updated 01/30/21 @ 17:09 by Carla WEBER, PA) Atrial fibrillation and flutter (Acute) NSTEMI (non-ST elevated myocardial infarction) (Acute) Empyema of lung (Acute) Pleural effusion on right (Acute) Hyperkalemia (Acute) Acute kidney injury (Acute) Metabolic acidosis (Acute) Acute respiratory failure (Acute) Acute encephalopathy (Acute) Decompensated hepatic cirrhosis (Acute) Alcohol abuse (Acute) Severe sepsis with septic shock (Acute) Hospital Course Mr. Nuno was a 65-year-old white male who presented to the emergency department on 01/29/2021 with mental status changes. The patient reportedly had a history of alcohol abuse and possibly liver disease and presented from his house via EMS to the emergency department. He evidently lives alone in an apartment near his son and the son had spoken to him the day previously. At that time he had urged him to go to see his physician and the son went to check on his dad the day he presented and found him to be unresponsive. His oxygen saturation was 80% on EMS arrival. In the emergency department he was afebrile but tachycardic with a heart rate of 156, normotensive but required 4 L nasal cannula to maintain oxygen saturations greater than 92%. He was obtunded and therefore intubated in the ED. He did receive 30 cc/kg fluid bolus given sepsis and his chest x-ray showed a right-sided pneumonia. A follow-up chest CT showed a large pleural effusion. The patient had mild hyperkalemia on admission and was given sodium bicarbonate, calcium gluconate, dextrose, and insulin. A thoracentesis was done in the emergency department and 3 L of purulent fluid was removed. Output from the thoracentesis was putrid, cloudy and had a foul odor. The patient was then admitted to the ICU at that time. On arrival to the ICU the patient was hypotensive and placed on pressors and additional fluid was removed from his chest. A chest tube was placed by general surgery at that time. He was placed on empiric antibiotics in the emergency department. Gram stain of the cultures were showing gram-positive cocci and gram-negative rods. ID was consulted and he was continued on vancomycin and Zosyn until sens itivities and identification could be obtained. The patient was found to have troponin elevation and cardiology was consulted. He was started on aspirin and noted to be in atrial fib/flutter with RVR and was placed on IV amiodarone and IV heparin. There was uncertainty whether or not he had demand ischemia from his tachycardia, pneumonia, and sepsis versus troponin elevation from acute coronary syndrome. We were not able to start him on a statin secondary to elevated liver enzymes nor were we able to start him on Lopressor or an JUAN MIGUEL inhibitor secondary to his blood pressure issues. He was started on IV hydrocortisone for stress dose steroids given his refractory hypotension despite Levophed, epinephrine, and vasopressin at max doses. He unfortunately decompensated further on the evening of 01/30/2021 and developed a PEA arrest. CODE BLUE was called and the patient received 2 rounds of epinephrine with 2 A of bicarb and CPR. Unfortunately, we were unable to obtain ROSC and given his significant comorbidities and clinical status the code was called and the patient . Time of was 1844.
--- NOTE | 2021-01-30 20:04 | NURSING ---
1830- Patient maxed on levophed, vasopressin, and neosynephrine, arterial line BP noted on monitor 50s/30s and dropping, call placed to Demian, son to come in, patient close to coding. 183- no pulse, PEA, code blue called, see code blue documentation
== END 2021-01-30 18:45 | DRG 208 ==
LOC: ED 17:23 → ICU 17:52
PROVIDERS: Physician Assistant Medical; Admitting Provider Internal Medicine; Emergency Provider Emergency Medicine; Visit Provider Internal Medicine
DX: J90 Pleural effusion, not elsewhere classified (principal); A41.9 Sepsis, unspecified organism; R65.21 Severe sepsis with septic shock; I21.4 Non-ST elevation (NSTEMI) myocardial infarction; J96.01 Acute respiratory failure with hypoxia; J69.0 Pneumonitis due to inhalation of food and vomit; J86.9 Pyothorax without fistula; N17.9 Acute kidney failure, unspecified; I48.92 Unspecified atrial flutter; E87.2 Acidosis; K70.40 Alcoholic hepatic failure without coma; I95.9 Hypotension, unspecified; I48.91 Unspecified atrial fibrillation; E87.5 Hyperkalemia; K70.30 Alcoholic cirrhosis of liver without ascites; F10.10 Alcohol abuse, uncomplicated; Y90.9 Presence of alcohol in blood, level not specified; F17.210 Nicotine dependence, cigarettes, uncomplicated; I46.9 Cardiac arrest, cause unspecified; Z79.899 Other long term (current) drug therapy; Z87.820 Personal history of traumatic brain injury
CPT/HCPCS: 31500; 36600; 51702; 70450; 71045; 71250; 74176; 80048; 80053; 80076; 80307; 81001; 82009; 82077; 82140; 82550; 82803; 82945; 82962; 83605; 83615; 83735; 84100; 84157; 84443; 84484; 85025; 85610; 85730; 87040; 87070; 87075; 87077; 87086; 87205; 87426; 89050; 92950; 93005; 93306; 94002; 97803; 99251; 99285; J7030; J7040; J7050; J7120; Q9957; A4216; C1751; G0463; J0295; J0610; J0696; J3010; J3490